=== PATIENT | female | born 1970 | race Caucasian/White ===

== ENCOUNTER → 2016-11-06 | Outpatient (CLI) | payer BC ==
[2014-12-04 04:30] VITALS: BP 107/63
[~2016-11-06] MED LIST: IBUP200T43 PO; OXYC-323 PO
--- NOTE | 2016-11-07 10:07 | KCIC ---
MR of the left thumb History: Left thumb pain since May. Injury at that time. COMPARISON: None FINDINGS: No bone lesion or acute fracture. No acute bone marrow edema. Small benign-appearing cysts incidentally noted at the partially visualized third metacarpal head. No significant joint effusion. The radial and ulnar collateral ligament at the first MTP joint are intact. Flexor and extensor tendons appear intact. No significant tendon sheath fluid. No abnormal soft tissue edema or fluid collection. IMPRESSION: No significant abnormality identified at the left thumb. Electronically signed by: Jalil Hicks MD (11/07/2016 10:04 AM)
== END | disposition home or self-care (01) ==
LOC: KCIC MRI 16:46
PROVIDERS: ATTEND Nurse Practitioner Adult Health
DX: M79.645 Pain in left finger(s) (principal)
CPT/HCPCS: 73218

== ENCOUNTER → 2016-11-09 | Outpatient (CLI) | payer BC ==
[2014-12-04 04:30] VITALS: BP 107/63
--- NOTE | 2016-11-10 10:03 | KCIC ---
MR of the left wrist HISTORY: Left wrist pain and swelling at the radial aspect. History of carpal tunnel surgery. Patient fell in May with hyperextension injury. TECHNIQUE: Routine multiplanar sequences are obtained. FINDINGS: Triangular fibrocartilage is intact. Extensor carpi ulnaris tendon intact. Mild thickening and signal within the abductor pollicis longus and extensor pollicis brevis tendons, at the level of the distal radius and carpi, with mild surrounding fluid. Minimal fluid surrounding the extensor digitorum tendons. Flexor tendons intact. Median nerve unremarkable. No evidence of scapholunate or lunotriquetral ligament tear. Alignment of the carpal bones appears satisfactory. No significant joint effusion. No bone lesion or acute fracture. No significant joint effusion. IMPRESSION: Mild first extensor compartment (De Quervain's) tenosynovitis. Electronically signed by: Jalil Hicks MD (11/10/2016 9:58 AM)
== END | disposition home or self-care (01) ==
LOC: KCIC MRI 16:41
PROVIDERS: ATTEND Nurse Practitioner Adult Health
DX: M25.532 Pain in left wrist (principal); M65.4 Radial styloid tenosynovitis [de Quervain]
CPT/HCPCS: 73221

== ENCOUNTER 2019-02-25 15:02 | Inpatient (IN) | payer BC ==
[~2019-02-25] VITALS: Ht 170.2 cm; Wt 107.2 kg
[~2019-02-25 15:02] MED LIST changes: -IBUP200T43 PO; +IBUP200T44 PO; -OXYC-323 PO; +OXYC1TAB15 PO
--- NOTE | 2019-02-25 15:43 | PHYS DOC ---
Past Medical History Past Medical History: Diverticulosis Past Surgical History: Hysterectomy, Other Additional Past Surgical Histo: foot surgery Alcohol Use: None Drug Use: None Adult General Chief Complaint Chief Complaint: ABDOMINAL PAIN HPI HPI Patient is a 48 year old female with history of diverticulitis presents the ED today stating she was diagnosed with diverticulitis as an outpatient and needs to be admitted. Patient states she's had 8 out of 10 sharp and constant lower abdominal pain for 4 days. She is also complaining of nausea with no vomiting. She states her pain is worse when she is walking. Denies anything specifically relieving her pain. Review of Systems Review of Systems Constitutional: Denies fever or chills [] Eyes: Denies change in visual acuity, redness, or eye pain [] HENT: Denies nasal congestion or sore throat [] Respiratory: Denies cough or shortness of breath [] Cardiovascular: No additional information not addressed in HPI [] GI: Reports lower abdominal pain with nausea, denies vomiting, bloody stools or diarrhea [] : Denies dysuria or hematuria [] Musculoskeletal: Denies back pain or joint pain [] Integument: Denies rash or skin lesions [] Neurologic: Denies headache, focal weakness or sensory changes [] All other systems were reviewed and found to be within normal limits, except as documented in this note. Current Medications Current Medications Current Medications Medications (Trade) Dose Ordered Sig/[facility] Start Time Stop Time Status Last Admin Dose Admin Acetaminophen (Tylenol Supp) 650 mg PRN Q4HRS PRN 02/25/19 16:45 Acetaminophen (Tylenol) 1,000 mg 1X ONCE 02/25/19 17:00 02/25/19 17:01 DC Albuterol Sulfate (Ventolin Neb Soln) 2.5 mg PRN Q4HRS PRN 02/25/19 16:45 Dobutamine HCl/ Dextrose 250 ml @ 0 mls/hr CONT PRN 02/25/19 16:45 UNV Enoxaparin Sodium (Lovenox 40mg Syringe) 40 mg QHS 02/25/19 21:00 Hydromorphone HCl (Dilaudid) 1 mg PRN Q2HRS PRN 02/25/19 16:45 Metronidazole 100 ml @ 100 mls/hr Q8HRS 02/25/19 16:00 02/25/19 16:39 100 MLS/HR Morphine Sulfate (Morphine Sulfate) 4 mg PRN Q15MIN PRN 02/25/19 15:45 02/26/19 15:44 Norepinephrine Bitartrate 250 ml @ 0 mls/hr CONT PRN 02/25/19 16:45 UNV Ondansetron HCl (Zofran) 4 mg PRN Q8HRS PRN 02/25/19 17:00 02/26/19 16:59 UNV Piperacillin Sod/ Tazobactam Sod 3.375 gm/Sodium Chloride 50 ml @ 100 mls/hr 1X ONCE 02/25/19 17:00 02/25/19 17:29 Cancel Piperacillin Sod/ Tazobactam Sod 4.5 gm/Sodium Chloride 100 ml @ 200 mls/hr 1X ONCE 02/25/19 15:45 02/25/19 16:14 DC 02/25/19 16:00 200 MLS/HR Sodium Chloride 1,000 ml @ 125 mls/hr 1X ONCE 02/25/19 17:00 02/26/19 00:59 UNV Sodium Chloride (Normal Saline Flush) 3 ml QSHIFT PRN 02/25/19 16:45 Vancomycin HCl (Vanco Per Pharmacy) 1 each PRN DAILY PRN 02/25/19 16:45 UNV Vancomycin HCl 2 gm/Sodium Chloride 500 ml @ 250 mls/hr 1X ONCE 02/25/19 16:00 02/25/19 17:59 Allergies Allergies Allergies Coded Allergies Type Severity Reaction Last Updated Verified No Known Drug Allergies 11/24/14 No Physical Exam Physical Exam Constitutional: Well developed, well nourished, no acute distress, non-toxic appearance. [] HENT: Normocephalic, atraumatic, bilateral external ears normal, oropharynx moist, no oral exudates, nose normal. [] Eyes: PERRLA, EOMI, conjunctiva normal, no discharge. [] Neck: Normal range of motion, no tenderness, supple, no stridor. [] Cardiovascular:Heart rate regular rhythm, no murmur [] Lungs & Thorax: Bilateral breath sounds clear to auscultation [] Abdomen: Bowel sounds normal, soft, diffuse tenderness throughout the lower aspect of the abdomen, no masses, no pulsatile masses. [] Skin: Warm, dry, no erythema, no rash. [] Back: No tenderness, no CVA tenderness. [] Extremities: No tenderness, no cyanosis, no clubbing, ROM intact, no edema. [] Neurologic: Alert and oriented X 3, normal motor function, normal sensory function, no focal deficits noted. [] Psychologic: Affect normal, judgement normal, mood normal. [] Current Patient Data Vital Signs Vital Signs Date Time Temp Pulse Resp B/P (MAP) Pulse Ox O2 Delivery O2 Flow Rate FiO2 02/25/19 16:41 101 20 130/78 (95) 96 Room Air 02/25/19 15:26 101.1 101.1 Lab Values Laboratory Tests Test 02/25/19 15:30 02/25/19 15:54 White Blood Count 15.4 x10^3/uL (4.0-11.0) H Red Blood Count 4.82 x10^6/uL (3.50-5.40) Hemoglobin 13.9 g/dL (12.0-15.5) Hematocrit 41.2 % (36.0-47.0) Mean Corpuscular Volume 86 fL (79-100) Mean Corpuscular Hemoglobin 29 pg (25-35) Mean Corpuscular Hemoglobin Concent 34 g/dL (31-37) Red Cell Distribution Width 13.5 % (11.5-14.5) Platelet Count 358 x10^3/uL (140-400) Neutrophils (%) (Auto) 83 % (31-73) H Lymphocytes (%) (Auto) 8 % (24-48) L Monocytes (%) (Auto) 8 % (0-9) Eosinophils (%) (Auto) 0 % (0-3) Basophils (%) (Auto) 1 % (0-3) Neutrophils # (Auto) 12.7 x10^3/uL (1.8-7.7) H Lymphocytes # (Auto) 1.3 x10^3/uL (1.0-4.8) Monocytes # (Auto) 1.3 x10^3/uL (0.0-1.1) H Eosinophils # (Auto) 0.1 x10^3/uL (0.0-0.7) Basophils # (Auto) 0.1 x10^3/uL (0.0-0.2) Segmented Neutrophils % 87 % (35-66) H Band Neutrophils % % (0-9) Lymphocytes % 8 % (24-48) L Monocytes % 4 % (0-10) Eosinophils % 1 % (0-5) Platelet Estimate Adequate (ADEQUATE) Giant Platelets Occ Prothrombin Time 15.9 SEC (11.7-14.0) H Prothrombin Time INR 1.3 (0.8-1.1) H Activated Partial Thromboplast Time 33 SEC (24-38) Sodium Level 142 mmol/L (136-145) Potassium Level 3.7 mmol/L (3.5-5.1) Chloride Level 102 mmol/L (98-107) Carbon Dioxide Level 26 mmol/L (21-32) Anion Gap 14 (6-14) Blood Urea Nitrogen 10 mg/dL (7-20) Creatinine 1.0 mg/dL (0.6-1.0) Estimated GFR (Cockcroft-Gault) 58.9 BUN/Creatinine Ratio 10 (6-20) Glucose Level 87 mg/dL (70-99) Lactic Acid Level 1.3 mmol/L (0.4-2.0) Calcium Level 9.7 mg/dL (8.5-10.1) Total Bilirubin 3.6 mg/dL (0.2-1.0) H Aspartate Amino Transferase (AST) 16 U/L (15-37) Alanine Aminotransferase (ALT) 20 U/L (14-59) Alkaline Phosphatase 83 U/L (46-116) Total Protein 7.8 g/dL (6.4-8.2) Albumin 3.6 g/dL (3.4-5.0) Albumin/Globulin Ratio 0.9 (1.0-1.7) L Lipase 64 U/L (73-393) L Urine Collection Type Void Urine Color Alycia Urine Clarity Clear Urine pH 6.0 Urine Specific [place] >=1.030 Urine Protein 30 mg/dL (NEG-TRACE) Urine Glucose (UA) Negative mg/dL (NEG) Urine Ketones (Stick) 40 mg/dL (NEG) Urine Blood Moderate (NEG) Urine Nitrite Negative (NEG) Urine Bilirubin Small (NEG) Urine Urobilinogen Dipstick 1.0 mg/dL (0.2 mg/dL) Urine Leukocyte Esterase Negative (NEG) Urine RBC 3-5 /HPF (0-2) Urine WBC 0 /HPF (0-4) Urine Squamous Epithelial Cells Occ /LPF Urine Bacteria 0 /HPF (0-FEW) Laboratory Tests 02/25/19 15:30 Laboratory Tests 02/25/19 15:30 EKG EKG [] Radiology/Procedures Radiology/Procedures [] Course & Med Decision Making Course & Med Decision Making Pertinent Labs and Imaging studies reviewed. (See chart for details) This is a 48-year-old male patient who presents to the ED today to be admitted for diverticulitis diagnosed through an outpatient workup. Her CAT scan done as an outpatient shows sigmoid diverticulitis complicated by a contained perforation along the posterior wall of the sigmoid colon, no drainable fluid collection present at this time. The extent of inflammation extends over the length of approximately 7-8 cm. No acute abnormality seen elsewhere. Vitals on arrival to the ED temperature 11.1, heart rate 117, respiration 24 and room air, O2 sats 97% on room air, blood pressure 135/82. CBC with a WBC of 15.4 and a left shift, hemoglobin and hematocrit are normal, CMP would not acute findings, peptic is normal, Patient was started on the sepsis protocol including IV fluids and antibiotics, Flagyl was also added to the antibiotics. [address] Yu who will f/u with patient Dragon Disclaimer Dragon Disclaimer This electronic medical record was generated, in whole or in part, using a voice recognition dictation system. Date and Time of Reassessment Date: Dec 03, 2014 Time: 16:18 Fluid Challenge Is the fluid challenge complet: No IBW Target Volume Used: Yes BMI > 30: Yes Vital Signs Vital Signs: Vital Signs Date Time Temp Pulse Resp B/P (MAP) Pulse Ox O2 Delivery O2 Flow Rate FiO2 02/25/19 16:41 101 20 130/78 (95) 96 Room Air 02/25/19 15:26 101.1 101.1 Temperature Source: Oral Respirations Respiratory Effort: Normal Respiratory Pattern: Normal Cardiovascular Pulse Rhythm: Regular Heart: Nml rate, reg. rhythm Lung Sounds Breath Sounds: Clear Capillary Refil Capillary Refill: Rt Hand > 3 seconds Peripheral Pulse Pulse Location: Monitor Pulse Strength: Normal (2+) Pulse Assessment Method: Monitor Integumentary Skin: Warm Skin Moisture: Dry Skin Color: warm Fingernail Color: WNL Departure Departure Impression: Primary Impression: Diverticulitis of colon with perforation Additional Impressions: Sepsis Fever Disposition: 09 ADMITTED INPATIENT Condition: STABLE Referrals: GOR[facility] (PCP) Problem Qualifiers Primary Impression: Diverticulitis of colon with perforation Diverticulitis bleeding: unspecified bleeding status Qualified Codes: K57.20 - Diverticulitis of large intestine with perforation and abscess without bleeding Additional Impressions: Sepsis Sepsis type: sepsis due to unspecified organism Sepsis acute organ dysfun ction status: unspecified Qualified Codes: A41.9 - Sepsis, unspecified organism Fever Fever type: unspecified Qualified Codes: R50.9 - Fever, unspecified MUTUNGA,RON STRATEGY ANALYST Feb 25, 2019 15:43
[2019-02-25] MEDS ORDERED: MORPHINE SULFATE 4 MG/ML VIAL. IV/SQ PRN (15:45)
[2019-02-25] MEDS ORDERED: PIPERACILLIN/TAZOBACTAM 4.5 GM in IV NORMAL SALINE 100ML 100 ML IV ONE (15:45)
[2019-02-25] MEDS ORDERED: ONDANSETRON PF 4 MG/2 ML VIAL. IVP ONE (15:45)
[2019-02-25] MEDS ORDERED: VANCOMYCIN PER PHARMACY MC ONE (15:45)
[2019-02-25 15:47] LABS: BASO # 0.1 x10^3/uL (0.0-0.2); BASO % 1 % (0-3); EOS # 0.1 x10^3/uL (0.0-0.7); EOS % 0 % (0-3); HEMATOCRIT 41.2 % (36.0-47.0); HEMOGLOBIN 13.9 g/dL (12.0-15.5); LYMPH # 1.3 x10^3/uL (1.0-4.8); LYMPH % 8 % (24-48); MEAN CORPUSCULAR HEMOGLOBIN 29 pg (25-35); MEAN CORPUSCULAR HGB CONC 34 g/dL (31-37); MEAN CORPUSCULAR VOLUME 86 fL (79-100); MONO # 1.3 x10^3/uL (0.0-1.1); MONO % 8 % (0-9); NEUT # 12.7 x10^3/uL (1.8-7.7); NEUT % 83 % (31-73); PLATELET COUNT 358 x10^3/uL (140-400); RED BLOOD COUNT 4.82 x10^6/uL (3.50-5.40); RED CELL DISTRIBUTION WIDTH 13.5 % (11.5-14.5); WHITE BLOOD COUNT 15.4 x10^3/uL (4.0-11.0)
[2019-02-25] MEDS: IV NORMAL SALINE 1000ML BAG 1,000 ML IV SCH ×5 (15:50→17:18)
[2019-02-25 15:56] LABS: CALCIUM 9.7 mg/dL (8.5-10.1); GFR 58.9; POTASSIUM 3.7 mmol/L (3.5-5.1)
[2019-02-25 15:57] LABS: BILIRUBIN,URINE SMALL (NEG); CLARITY,URINE CLEAR; COLOR,URINE AMBER; NITRITE,URINE NEGATIVE (NEG); PROTEIN,URINE 30 mg/dL (NEG-TRACE)
[2019-02-25] MEDS ORDERED: VANCOMYCIN 2 GM in IV NORMAL SALINE 500ML BAG 500 ML IV ONE (16:00)
[2019-02-25 16:01] LABS: ALBUMIN 3.6 g/dL (3.4-5.0); ALBUMIN/GLOBULIN RATIO 0.9 (1.0-1.7); TOTAL BILIRUBIN 3.6 mg/dL (0.2-1.0); TOTAL PROTEIN 7.8 g/dL (6.4-8.2)
[2019-02-25 16:04] LABS: PROTHROMBIN TIME PATIENT 15.9 SEC (11.7-14.0)
[2019-02-25 16:09] LABS: BACTERIA,URINE 0 /HPF (0-FEW); SQUAMOUS EPITHELIAL CELL,UR OCC /LPF; WBC,URINE 0 /HPF (0-4)
--- NOTE | 2019-02-25 16:23 | PDOC1 ---
History and Physical Date of Admission Date of Admission DATE: 02/25/19 TIME: 16:21 Identification/Chief Complaint Chief Complaint SENT TO ER BY PCP WITH PERF OF COLON BY CT REPORT D/W DR ROBERTS BY PHONE, SURGERY CONSULTED 48 year old female with history of diverticulitis presents the ED today stating she was diagnosed with diverticulitis as an outpatient and needs to be admitted. Patient states she's had 8 out of 10 sharp and constant lower abdominal pain for 4 days. She is also complaining of nausea with no vomiting. She states her pain is worse when she is walking. Past Medical History Past Medical History Past Medical History Past Medical History Past Medical History: Diverticulosis Past Surgical History: Hysterectomy, Other Additional Past Surgical Histo: foot surgery Alcohol Use: None Drug Use: None PAST MEDICAL HISTORY: She is a 4, para 4. PAST SURGICAL HISTORY: She has had no past surgeries. MEDICATION: Her only medication is an allergy medication, ALLERGIES: She has no known drug allergies. SOCIAL HISTORY: She is a nonsmoker. No drugs. No alcohol. FAMILY HISTORY: breast cancer in her maternal aunt. fhx obesity Cardiovascular: No pertinent hx Pulmonary: No pertinent hx GI: No pertinent hx Heme/Onc: No pertinent hx Psych: No pertinent hx Rheumatologic: No pertinent hx Infectious disease: No pertinent hx ENT: No pertinent hx Renal/: No pertinent hx Endocrine: No pertinent hx Family History Family History: Hypertension Social History Smoke: No ALCOHOL: none Drugs: None Current Problem List Problem List Problems Medical Problems: (1) Diverticulitis of colon with perforation Status: Acute (2) Fever Status: Acute (3) Sepsis Status: Acute Current Medications Current Medications Current Medications Sodium Chloride 1,000 ml @ 1,860 mls/hr Q33M IV Last administered on 02/25/19at 15:50; Start 02/25/19 at 15:32; Stop 02/25/19 at 16:32 Piperacillin Sod/ Tazobactam Sod 4.5 gm/Sodium Chloride 100 ml @ 200 mls/hr 1X ONCE IV Last administered on 02/25/19at 16:00; Start 02/25/19 at 15:45; Stop 02/25/19 at 16:14; Status DC Vancomycin HCl (Vanco Per Pharmacy) 1 each 1X ONCE [facility] ; Start 02/25/19 at 15:45; Stop 02/25/19 at 15:46; Status UNV Morphine Sulfate (Morphine Sulfate) 4 mg PRN Q15MIN PRN IV/SQ PAIN GREATER THAN 3/10; Start 02/25/19 at 15:45; Stop 02/26/19 at 15:44 Vancomycin HCl 2 gm/Sodium Chloride 500 ml @ 250 mls/hr 1X ONCE IV ; Start 02/25/19 at 16:00; Stop 02/25/19 at 17:59 Metronidazole 100 ml @ 100 mls/hr Q8HRS IV ; Start 02/25/19 at 16:00 Ondansetron HCl (Zofran) 4 mg 1X ONCE IVP ; Start 02/25/19 at 15:45; Stop 02/25/19 at 15:46; Status DC Active Scripts Active Reported Percocet 5-325 Mg Tablet (Oxycodone/Acetaminophen) 1 Each Tablet 1-2 Tab PO Q4- 6HRS Motrin Ib (Ibuprofen) 200 Mg Tablet 200 Mg PO Q6H Allergies Allergies: Coded Allergies: No Known Drug Allergies (Unverified , 11/24/14) ROS Review of System Review of Systems Review of Systems Constitutional: pos fever // chills [] Eyes: Denies change in visual acuity, redness, or eye pain [] HENT: Denies nasal congestion or sore throat [] Respiratory: Denies cough or shortness of breath [] Cardiovascular: No additional information not addressed in HPI [] GI: Reports lower abdominal pain with nausea, denies vomiting, bloody stools or diarrhea [] : Denies dysuria or hematuria [] Musculoskeletal: Denies back pain or joint pain [] Integument: Denies rash or skin lesions [] Neurologic: Denies headache, focal weakness or sensory changes [] 14 pt systems were reviewed and found to be within normal limits, except as documented General: YES: Chills Respiratory: No: Cough, Hemoptysis, Orthopnea, Pleuritic Pain, Shortness of breath, SOB with excertion, Sputum Changes, Stridor, Tachypnea, Wheezing, Other Cardiovascular: No Chest Pain, No Palpitations, No Orthopnea, No Paroxysmal Noc. Dyspnea, No Edema, No Lt Headedness, No Other Gastrointestinal: Yes Abdominal Pain Physical Exam Physical Exam Physical Exam Physical Exam Constitutional: Well developed, well nourished, mild acute distress, non-toxic appearance. [] HENT: Normocephalic, atraumatic, bilateral external ears normal, oropharynx moist, no oral exudates, nose normal. [] Eyes: PERRLA, EOMI, conjunctiva normal, no discharge. [] Neck: Normal range of motion, no tenderness, supple, no stridor. [] Cardiovascular:Heart rate regular rhythm, no murmur [] Lungs & Thorax: Bilateral breath sounds clear to auscultation [] Abdomen: diffuse tenderness throughout the lower aspect of the abdomen, no masses, no pulsatile masses. [] Skin: Warm, dry, no erythema, no rash. [] Back: No tenderness, no CVA tenderness. [] Extremities: No tenderness, no cyanosis, no clubbing, ROM intact, no edema. [] Neurologic: Alert and oriented X 3, normal motor function, normal sensory function, no focal deficits noted. [] Psychologic: Affect normal, judgment normal, mood normal. [] General: Alert, Oriented X3, Cooperative, mild distress HEENT: Atraumatic, PERRLA, EOMI, Mucous membr. moist/pink Lungs: Clear to auscultation Heart: S1S2, RRR, no thrills, no gallops Breasts: Not examined Abdomen: No hepatosplenomegaly Rectal Exam: not examined PELVIC: Examination not indicated Extremities: No cyanosis, No edema Skin: No breakdown Neuro: Normal speech, Cranial nerves 3-12 NL Psych/Mental Status: Mental status NL, Mood NL Vitals Vitals Vital Signs Date Time Temp Pulse Resp B/P (MAP) Pulse Ox O2 Delivery O2 Flow Rate FiO2 02/25/19 16:03 105 18 120/73 (89) 98 Room Air 02/25/19 15:26 101.1 101.1 Labs Labs Laboratory Tests Test 02/25/19 15:30 02/25/19 15:54 White Blood Count 15.4 x10^3/uL (4.0-11.0) Red Blood Count 4.82 x10^6/uL (3.50-5.40) Hemoglobin 13.9 g/dL (12.0-15.5) Hematocrit 41.2 % (36.0-47.0) Mean Corpuscular Volume 86 fL (79-100) Mean Corpuscular Hemoglobin 29 pg (25-35) Mean Corpuscular Hemoglobin Concent 34 g/dL (31-37) Red Cell Distribution Width 13.5 % (11.5-14.5) Platelet Count 358 x10^3/uL (140-400) Neutrophils (%) (Auto) 83 % (31-73) Lymphocytes (%) (Auto) 8 % (24-48) Monocytes (%) (Auto) 8 % (0-9) Eosinophils (%) (Auto) 0 % (0-3) Basophils (%) (Auto) 1 % (0-3) Neutrophils # (Auto) 12.7 x10^3/uL (1.8-7.7) Lymphocytes # (Auto) 1.3 x10^3/uL (1.0-4.8) Monocytes # (Auto) 1.3 x10^3/uL (0.0-1.1) Eosinophils # (Auto) 0.1 x10^3/uL (0.0-0.7) Basophils # (Auto) 0.1 x10^3/uL (0.0-0.2) Prothrombin Time 15.9 SEC (11.7-14.0) Prothromb Time International Ratio 1.3 (0.8-1.1) Activated Partial Thromboplast Time 33 SEC (24-38) Sodium Level 142 mmol/L (136-145) Potassium Level 3.7 mmol/L (3.5-5.1) Chloride Level 102 mmol/L (98-107) Carbon Dioxide Level 26 mmol/L (21-32) Anion Gap 14 (6-14) Blood Urea Nitrogen 10 mg/dL (7-20) Creatinine 1.0 mg/dL (0.6-1.0) Estimated GFR (Cockcroft-Gault) 58.9 BUN/Creatinine Ratio 10 (6-20) Glucose Level 87 mg/dL (70-99) Lactic Acid Level 1.3 mmol/L (0.4-2.0) Calcium Level 9.7 mg/dL (8.5-10.1) Total Bilirubin 3.6 mg/dL (0.2-1.0) Aspartate Amino Transf (AST/SGOT) 16 U/L (15-37) Alanine Aminotransferase (ALT/SGPT) 20 U/L (14-59) Alkaline Phosphatase 83 U/L (46-116) Total Protein 7.8 g/dL (6.4-8.2) Albumin 3.6 g/dL (3.4-5.0) Albumin/Globulin Ratio 0.9 (1.0-1.7) Lipase 64 U/L (73-393) Urine Collection Type Void Urine Color Alycia Urine Clarity Clear Urine pH 6.0 Urine Specific [place] >=1.030 Urine Protein 30 mg/dL (NEG-TRACE) Urine Glucose (UA) Negative mg/dL (NEG) Urine Ketones (Stick) 40 mg/dL (NEG) Urine Blood Moderate (NEG) Urine Nitrite Negative (NEG) Urine Bilirubin Small (NEG) Urine Urobilinogen Dipstick 1.0 mg/dL (0.2 mg/dL) Urine Leukocyte Esterase Negative (NEG) Urine RBC 3-5 /HPF (0-2) Urine WBC 0 /HPF (0-4) Urine Squamous Epithelial Cells Occ /LPF Urine Bacteria 0 /HPF (0-FEW) Laboratory Tests Test 02/25/19 15:30 02/25/19 15:54 White Blood Count 15.4 x10^3/uL (4.0-11.0) Red Blood Count 4.82 x10^6/uL (3.50-5.40) Hemoglobin 13.9 g/dL (12.0-15.5) Hematocrit 41.2 % (36.0-47.0) Mean Corpuscular Volume 86 fL (79-100) Mean Corpuscular Hemoglobin 29 pg (25-35) Mean Corpuscular Hemoglobin Concent 34 g/dL (31-37) Red Cell Distribution Width 13.5 % (11.5-14.5) Platelet Count 358 x10^3/uL (140-400) Neutrophils (%) (Auto) 83 % (31-73) Lymphocytes (%) (Auto) 8 % (24-48) Monocytes (%) (Auto) 8 % (0-9) Eosinophils (%) (Auto) 0 % (0-3) Basophils (%) (Auto) 1 % (0-3) Neutrophils # (Auto) 12.7 x10^3/uL (1.8-7.7) Lymphocytes # (Auto) 1.3 x10^3/uL (1.0-4.8) Monocytes # (Auto) 1.3 x10^3/uL (0.0-1.1) Eosinophils # (Auto) 0.1 x10^3/uL (0.0-0.7) Basophils # (Auto) 0.1 x10^3/uL (0.0-0.2) Prothrombin Time 15.9 SEC (11.7-14.0) Prothromb Time International Ratio 1.3 (0.8-1.1) Activated Partial Thromboplast Time 33 SEC (24-38) Sodium Level 142 mmol/L (136-145) Potassium Level 3.7 mmol/L (3.5-5.1) Chloride Level 102 mmol/L (98-107) Carbon Dioxide Level 26 mmol/L (21-32) Anion Gap 14 (6-14) Blood Urea Nitrogen 10 mg/dL (7-20) Creatinine 1.0 mg/dL (0.6-1.0) Estimated GFR (Cockcroft-Gault) 58.9 BUN/Creatinine Ratio 10 (6-20) Glucose Level 87 mg/dL (70-99) Lactic Acid Level 1.3 mmol/L (0.4-2.0) Calcium Level 9.7 mg/dL (8.5-10.1) Total Bilirubin 3.6 mg/dL (0.2-1.0) Aspartate Amino Transf (AST/SGOT) 16 U/L (15-37) Alanine Aminotransferase (ALT/SGPT) 20 U/L (14-59) Alkaline Phosphatase 83 U/L (46-116) Total Protein 7.8 g/dL (6.4-8.2) Albumin 3.6 g/dL (3.4-5.0) Albumin/Globulin Ratio 0.9 (1.0-1.7) Lipase 64 U/L (73-393) Urine Collection Type Void Urine Color Alycia Urine Clarity Clear Urine pH 6.0 Urine Specific [place] >=1.030 Urine Protein 30 mg/dL (NEG-TRACE) Urine Glucose (UA) Negative mg/dL (NEG) Urine Ketones (Stick) 40 mg/dL (NEG) Urine Blood Moderate (NEG) Urine Nitrite Negative (NEG) Urine Bilirubin Small (NEG) Urine Urobilinogen Dipstick 1.0 mg/dL (0.2 mg/dL) Urine Leukocyte Esterase Negative (NEG) Urine RBC 3-5 /HPF (0-2) Urine WBC 0 /HPF (0-4) Urine Squamous Epithelial Cells Occ /LPF Urine Bacteria 0 /HPF (0-FEW) VTE Prophylaxis Ordered VTE Prophylaxis Devices: Yes VTE Pharmacological Prophylaxi: Contraindicated Assessment/Plan Assessment/Plan impression 1. ACUTE DIVERTICULITIS WITH REPORTED PERFORATION BY HX, VERBAL ///CT REPORT 2. SEPSIS 3. MORBID OBESITY 4. LEUKOCYTOSIS 5. FEVER PLAN NPO IV FLUID SUPPORT GEN SURGERY CONSULT MIMI EMPERIC IV ANTIBIOTICS IV VANC, CIPRO, ZOSYN ID CONSULT BLOOD CULT DVT PROPHYLAXIS GI PROPHYLAXIS AM LABS SEPSIS PROTOCOL 34 MIN CC TIME LEVI DUVAL MD Feb 25, 2019 16:23
[2019-02-25 16:31] LABS: % EOS 1 % (0-5); % LYMPHS 8 % (24-48); % MONOS 4 % (0-10); % SEGS 87 % (35-66); PLT ESTIMATE ADEQUATE (ADEQUATE)
[2019-02-25] MEDS ORDERED: NOREPINEPHRIN 8MG/250ML PREMIX 250 ML IV PRN (16:45)
[2019-02-25] MEDS ORDERED: ACETAMINOPHEN 650 MG SUPP.RECT. PR PRN (16:45)
[2019-02-25] MEDS ORDERED: ONDANSETRON PF 4 MG/2 ML VIAL. IV PRN ×2 (16:45→17:00)
[2019-02-25] MEDS ORDERED: ALBUTEROL SULFATE 2.5 MG/3 ML NEBU. NEB PRN (16:45)
[2019-02-25] MEDS ORDERED: IV NORMAL SALINE 500ML BAG 500 ML IV PRN (16:45)
[2019-02-25] MEDS ORDERED: HYDROmorphone 2 MG/ML VIAL IV PRN (16:45)
[2019-02-25] MEDS ORDERED: 0.9 % SODIUM CHLORIDE 10 ML DISP.SYRIN. IV PRN (16:45)
[2019-02-25] MEDS ORDERED: ACETAMINOPHEN 500 MG TABLET PO ONE (17:00)
[2019-02-25] MEDS ORDERED: IV NORMAL SALINE 1000ML BAG 1,000 ML IV ONE (17:00)
[2019-02-25] MEDS ORDERED: PIPERACILLIN/TAZOBACTAM 3.375 GM in IV NORMAL SALINE 50ML 50 ML IV ONE (17:00)
[2019-02-25 17:06] LABS: D-DIMER 1.61 ug/mlFEU (0.00-0.50)
[2019-02-25] MEDS: VANCOMYCIN PER PHARMACY MC PRN (19:16)
--- NOTE | 2019-02-25 19:21 | NUR ---
Pharmacy Vancomycin Dosing Note S:Consulted to monitor and dose vancomycin started 02/25/19. O:NED CANTOR is a 48 year old F with perforated colon . Height: 5 feet, 7 inches Weight: 108.867096 kg [place] Body Weight: 61.60 Adjusted Body Weight: 80.16 Dosing Weight: Actual Other Antibiotics: zosyn LABS: Last BUN: 10 Last Creatinine: 1.0 Creatinine Clearance: 86 mL/min Last WBC: 15.4 Last Procalcitonin: Tmax (past 24 hours): Microbiology: I/O: Drug Levels: Last level: on at Last dose given at Vancomycin Dosing: Loading Dose: 2000 mg x1 Dosing Weight: Actual Target Trough: 10-20 A: Based on: HT, WT AND RENAL FXN P: 1. Begin Vancomycin 1250 mg IV q12h 2. Follow up Trough level on 02/27/19 at 0530 3. Pharmacy will continue to monitor, follow and adjust therapy as needed. FARNAZ MARTIN, [facility], 02/25/19 [id number]
[2019-02-25 19:30] VITALS: BP 120/75
[2019-02-25 23:35] VITALS: BP 122/71
[2019-02-25] MEDS: ENOXAPARIN 40 MG/0.4 ML SYRINGE. SQ SCH (23:49)
[2019-02-26] MEDS: PIPERACILLIN/TAZOBACTAM 3.375 GM in IV NORMAL SALINE 50ML 50 ML IV SCH ×5 (00:53→23:15)
[2019-02-26] MEDS: IV NORMAL SALINE 1000ML BAG 1,000 ML IV SCH ×4 (02:40→23:16)
[2019-02-26 03:25] VITALS: BP 138/76
[2019-02-26 04:32] LABS: BASO % 0 % (0-3); EOS # 0.1 x10^3/uL (0.0-0.7); EOS % 1 % (0-3); HEMATOCRIT 36.5 % (36.0-47.0); HEMOGLOBIN 12.2 g/dL (12.0-15.5); LYMPH # 0.8 x10^3/uL (1.0-4.8); LYMPH % 7 % (24-48); MEAN CORPUSCULAR HEMOGLOBIN 29 pg (25-35); MEAN CORPUSCULAR HGB CONC 33 g/dL (31-37); MEAN CORPUSCULAR VOLUME 86 fL (79-100); MONO # 0.8 x10^3/uL (0.0-1.1); MONO % 7 % (0-9); NEUT # 9.5 x10^3/uL (1.8-7.7); NEUT % 85 % (31-73); PLATELET COUNT 271 x10^3/uL (140-400); RED BLOOD COUNT 4.23 x10^6/uL (3.50-5.40); RED CELL DISTRIBUTION WIDTH 13.7 % (11.5-14.5); WHITE BLOOD COUNT 11.1 x10^3/uL (4.0-11.0)
[2019-02-26 04:43] LABS: CALCIUM 8.6 mg/dL (8.5-10.1); CREATININE 0.8 mg/dL (0.6-1.0); GFR 76.2; POTASSIUM 3.7 mmol/L (3.5-5.1)
[2019-02-26] MEDS ORDERED: VANCOMYCIN 1.25 GM in IV NORMAL SALINE 250ML 250 ML IV SCH (06:00)
[2019-02-26 07:00] VITALS: BP 140/82
--- NOTE | 2019-02-26 08:00 | NUR ---
Spoke with pharmacy regarding flu shot and possible surgery. Pharmacy advised to hold off on flu shot administration until official plan in place. Will continue to monitor.
[2019-02-26] MEDS: VANCOMYCIN PER PHARMACY MC PRN (08:34)
[2019-02-26] MEDS ORDERED: FLU VAX QS 2019-20 (36MOS+)/PF 0.5 ML SYRINGE. VAX IM ONE (09:00)
[2019-02-26] MEDS ORDERED: ACETAMINOPHEN 325 MG TABLET. PO PRN (09:15)
--- NOTE | 2019-02-26 09:31 | PDOC ---
Infectious Disease Note Vital Sign Vital Signs Vital Signs Date Time Temp Pulse Resp B/P (MAP) Pulse Ox O2 Delivery O2 Flow Rate FiO2 02/26/19 07:00 98.2 94 16 140/82 (101) 93 Room Air 98.2 Labs Lab Laboratory Tests Test 02/25/19 15:30 02/25/19 15:54 02/26/19 02:55 White Blood Count 15.4 x10^3/uL (4.0-11.0) 11.1 x10^3/uL (4.0-11.0) Red Blood Count 4.82 x10^6/uL (3.50-5.40) 4.23 x10^6/uL (3.50-5.40) Hemoglobin 13.9 g/dL (12.0-15.5) 12.2 g/dL (12.0-15.5) Hematocrit 41.2 % (36.0-47.0) 36.5 % (36.0-47.0) Mean Corpuscular Volume 86 fL (79-100) 86 fL (79-100) Mean Corpuscular Hemoglobin 29 pg (25-35) 29 pg (25-35) Mean Corpuscular Hemoglobin Concent 34 g/dL (31-37) 33 g/dL (31-37) Red Cell Distribution Width 13.5 % (11.5-14.5) 13.7 % (11.5-14.5) Platelet Count 358 x10^3/uL (140-400) 271 x10^3/uL (140-400) Neutrophils (%) (Auto) 83 % (31-73) 85 % (31-73) Lymphocytes (%) (Auto) 8 % (24-48) 7 % (24-48) Monocytes (%) (Auto) 8 % (0-9) 7 % (0-9) Eosinophils (%) (Auto) 0 % (0-3) 1 % (0-3) Basophils (%) (Auto) 1 % (0-3) 0 % (0-3) Neutrophils # (Auto) 12.7 x10^3/uL (1.8-7.7) 9.5 x10^3/uL (1.8-7.7) Lymphocytes # (Auto) 1.3 x10^3/uL (1.0-4.8) 0.8 x10^3/uL (1.0-4.8) Monocytes # (Auto) 1.3 x10^3/uL (0.0-1.1) 0.8 x10^3/uL (0.0-1.1) Eosinophils # (Auto) 0.1 x10^3/uL (0.0-0.7) 0.1 x10^3/uL (0.0-0.7) Basophils # (Auto) 0.1 x10^3/uL (0.0-0.2) 0.0 x10^3/uL (0.0-0.2) Segmented Neutrophils % 87 % (35-66) Band Neutrophils % % (0-9) Lymphocytes % 8 % (24-48) Monocytes % 4 % (0-10) Eosinophils % 1 % (0-5) Platelet Estimate Adequate (ADEQUATE) Giant Platelets Occ Prothrombin Time 15.9 SEC (11.7-14.0) Prothromb Time International Ratio 1.3 (0.8-1.1) Activated Partial Thromboplast Time 33 SEC (24-38) Fibrinogen 750 mg/dL (200-440) D-Dimer (Nancy) 1.61 ug/mlFEU (0.00-0.50) Sodium Level 142 mmol/L (136-145) 142 mmol/L (136-145) Potassium Level 3.7 mmol/L (3.5-5.1) 3.7 mmol/L (3.5-5.1) Chloride Level 102 mmol/L (98-107) 108 mmol/L (98-107) Carbon Dioxide Level 26 mmol/L (21-32) 21 mmol/L (21-32) Anion Gap 14 (6-14) 13 (6-14) Blood Urea Nitrogen 10 mg/dL (7-20) 9 mg/dL (7-20) Creatinine 1.0 mg/dL (0.6-1.0) 0.8 mg/dL (0.6-1.0) Estimated GFR (Cockcroft-Gault) 58.9 76.2 BUN/Creatinine Ratio 10 (6-20) Glucose Level 87 mg/dL (70-99) 72 mg/dL (70-99) Lactic Acid Level 1.3 mmol/L (0.4-2.0) Calcium Level 9.7 mg/dL (8.5-10.1) 8.6 mg/dL (8.5-10.1) Total Bilirubin 3.6 mg/dL (0.2-1.0) Aspartate Amino Transf (AST/SGOT) 16 U/L (15-37) Alanine Aminotransferase (ALT/SGPT) 20 U/L (14-59) Alkaline Phosphatase 83 U/L (46-116) Total Protein 7.8 g/dL (6.4-8.2) Albumin 3.6 g/dL (3.4-5.0) Albumin/Globulin Ratio 0.9 (1.0-1.7) Lipase 64 U/L (73-393) Procalcitonin < 0.10 ng/mL (0.00-0.10) Urine Collection Type Void Urine Color Alycia Urine Clarity Clear Urine pH 6.0 Urine Specific Ki[place] >=1.030 Urine Protein 30 mg/dL (NEG-TRACE) Urine Glucose (UA) Negative mg/dL (NEG) Urine Ketones (Stick) 40 mg/dL (NEG) Urine Blood Moderate (NEG) Urine Nitrite Negative (NEG) Urine Bilirubin Small (NEG) Urine Urobilinogen Dipstick 1.0 mg/dL (0.2 mg/dL) Urine Leukocyte Esterase Negative (NEG) Urine RBC 3-5 /HPF (0-2) Urine WBC 0 /HPF (0-4) Urine Squamous Epithelial Cells Occ /LPF Urine Bacteria 0 /HPF (0-FEW) Objective Assessment Acute diverticulitis with contained perforation (OP CT scan) Fever Leukocytosis Obesity Plan Plan of Care Continue Zosyn D/c vanc and flagyl f/u cultures D/w Dr. Yu, lalit surgical plans Clear liquids Thank you [id number] Need to acquire CT scan images so we can use for comparison. d/w D/w nursing may need to change IV as it is beeping frequently with occlusion Attending Co-Sign Attending Co-Sign The patient was seen and interviewed as well as examined at the bedside. The chart was reviewed. The case was discussed. Agree with the plan of care. PARKER SANCHEZ APRN Feb 26, 2019 09:31 LORENA MCGEE MD Feb 26, 2019 17:17
--- NOTE | 2019-02-26 10:07 | PDOC ---
[facility] PROGRESS NOTE Chief Complaint Chief Complaint Abdominal pain History of Present Illness History of Present Illness 02/26/19 Pt seen and examined Pt had CXR today PT is feeling better and sitting up right eating clear liquid diet We explained to her about her diverticulitis condition and ways to help keep her bowel soft and to avoid seeds Reviewed chart and labs MARIA G REGALADO Vitals/I&O Vitals/I&O: Vital Signs Date Time Temp Pulse Resp B/P (MAP) Pulse Ox O2 Delivery O2 Flow Rate FiO2 02/26/19 07:00 98.2 94 16 140/82 (101) 93 Room Air 98.2 I & O 02/25/19 02/25/19 02/26/19 15:00 23:00 07:00 Intake Total 2060 ml 300 ml Output Total 600 ml Balance 2060 ml -300 ml Physical Exam General: Alert, Oriented X3, Cooperative, mild distress Abdomen: No hepatosplenomegaly Extremities: No cyanosis, No edema Skin: No breakdown Labs Labs: Laboratory Tests Test 02/25/19 15:30 02/25/19 15:54 02/26/19 02:55 White Blood Count 15.4 x10^3/uL (4.0-11.0) 11.1 x10^3/uL (4.0-11.0) Red Blood Count 4.82 x10^6/uL (3.50-5.40) 4.23 x10^6/uL (3.50-5.40) Hemoglobin 13.9 g/dL (12.0-15.5) 12.2 g/dL (12.0-15.5) Hematocrit 41.2 % (36.0-47.0) 36.5 % (36.0-47.0) Mean Corpuscular Volume 86 fL (79-100) 86 fL (79-100) Mean Corpuscular Hemoglobin 29 pg (25-35) 29 pg (25-35) Mean Corpuscular Hemoglobin Concent 34 g/dL (31-37) 33 g/dL (31-37) Red Cell Distribution Width 13.5 % (11.5-14.5) 13.7 % (11.5-14.5) Platelet Count 358 x10^3/uL (140-400) 271 x10^3/uL (140-400) Neutrophils (%) (Auto) 83 % (31-73) 85 % (31-73) Lymphocytes (%) (Auto) 8 % (24-48) 7 % (24-48) Monocytes (%) (Auto) 8 % (0-9) 7 % (0-9) Eosinophils (%) (Auto) 0 % (0-3) 1 % (0-3) Basophils (%) (Auto) 1 % (0-3) 0 % (0-3) Neutrophils # (Auto) 12.7 x10^3/uL (1.8-7.7) 9.5 x10^3/uL (1.8-7.7) Lymphocytes # (Auto) 1.3 x10^3/uL (1.0-4.8) 0.8 x10^3/uL (1.0-4.8) Monocytes # (Auto) 1.3 x10^3/uL (0.0-1.1) 0.8 x10^3/uL (0.0-1.1) Eosinophils # (Auto) 0.1 x10^3/uL (0.0-0.7) 0.1 x10^3/uL (0.0-0.7) Basophils # (Auto) 0.1 x10^3/uL (0.0-0.2) 0.0 x10^3/uL (0.0-0.2) Segmented Neutrophils % 87 % (35-66) Band Neutrophils % % (0-9) Lymphocytes % 8 % (24-48) Monocytes % 4 % (0-10) Eosinophils % 1 % (0-5) Platelet Estimate Adequate (ADEQUATE) Giant Platelets Occ Prothrombin Time 15.9 SEC (11.7-14.0) Prothromb Time International Ratio 1.3 (0.8-1.1) Activated Partial Thromboplast Time 33 SEC (24-38) Fibrinogen 750 mg/dL (200-440) D-Dimer (Nancy) 1.61 ug/mlFEU (0.00-0.50) Sodium Level 142 mmol/L (136-145) 142 mmol/L (136-145) Potassium Level 3.7 mmol/L (3.5-5.1) 3.7 mmol/L (3.5-5.1) Chloride Level 102 mmol/L (98-107) 108 mmol/L (98-107) Carbon Dioxide Level 26 mmol/L (21-32) 21 mmol/L (21-32) Anion Gap 14 (6-14) 13 (6-14) Blood Urea Nitrogen 10 mg/dL (7-20) 9 mg/dL (7-20) Creatinine 1.0 mg/dL (0.6-1.0) 0.8 mg/dL (0.6-1.0) Estimated GFR (Cockcroft-Gault) 58.9 76.2 BUN/Creatinine Ratio 10 (6-20) Glucose Level 87 mg/dL (70-99) 72 mg/dL (70-99) Lactic Acid Level 1.3 mmol/L (0.4-2.0) Calcium Level 9.7 mg/dL (8.5-10.1) 8.6 mg/dL (8.5-10.1) Total Bilirubin 3.6 mg/dL (0.2-1.0) Aspartate Amino Transf (AST/SGOT) 16 U/L (15-37) Alanine Aminotransferase (ALT/SGPT) 20 U/L (14-59) Alkaline Phosphatase 83 U/L (46-116) Total Protein 7.8 g/dL (6.4-8.2) Albumin 3.6 g/dL (3.4-5.0) Albumin/Globulin Ratio 0.9 (1.0-1.7) Lipase 64 U/L (73-393) Procalcitonin < 0.10 ng/mL (0.00-0.10) Urine Collection Type Void Urine Color Alycia Urine Clarity Clear Urine pH 6.0 Urine Specific [place] >=1.030 Urine Protein 30 mg/dL (NEG-TRACE) Urine Glucose (UA) Negative mg/dL (NEG) Urine Ketones (Stick) 40 mg/dL (NEG) Urine Blood Moderate (NEG) Urine Nitrite Negative (NEG) Urine Bilirubin Small (NEG) Urine Urobilinogen Dipstick 1.0 mg/dL (0.2 mg/dL) Urine Leukocyte Esterase Negative (NEG) Urine RBC 3-5 /HPF (0-2) Urine WBC 0 /HPF (0-4) Urine Squamous Epithelial Cells Occ /LPF Urine Bacteria 0 /HPF (0-FEW) Review of Systems Review of Systems: Denies pain Denies n/v/d Assessment and Plan Assessmemt and Plan Problems Medical Problems: (1) Diverticulitis of colon with perforation Status: Acute (2) Fever Status: Acute (3) Sepsis Status: Acute Assessment Acute diverticulitis of sigmoid colon with perforation Sepsis Obesity Leukocytosis Fever PLAN D/c flagyl and vanc Zosyn per ID Clear liquids Tylenol PRN Appreciate ID consult Labs Sepsis protocol Appreciate surgery consult Comment Review of Relevant I have reviewed the following items georges (where applicable) has been applied. Medications: Current Medications Medications (Trade) Dose Ordered Sig/Mercy Route PRN Reason Start Time Stop Time Status Last Admin Dose Admin Sodium Chloride 1,000 ml @ 1,860 mls/hr Q33M IV 02/25/19 15:32 02/25/19 16:32 DC 02/25/19 17:17 Piperacillin Sod/ Tazobactam Sod 4.5 gm/Sodium Chloride 100 ml @ 200 mls/hr 1X ONCE IV 02/25/19 15:45 02/25/19 16:14 DC 02/25/19 16:00 Vancomycin HCl 2 gm/Sodium Chloride 500 ml @ 250 mls/hr 1X ONCE IV 02/25/19 16:00 02/25/19 17:59 DC 02/25/19 17:50 Metronidazole 100 ml @ 100 mls/hr Q8HRS IV 02/25/19 16:00 02/26/19 09:02 DC 02/26/19 05:33 Sodium Chloride 1,000 ml @ 100 mls/hr Q10H IV 02/25/19 16:40 02/26/19 05:06 Ondansetron HCl (Zofran) 4 mg PRN Q4HRS PRN IV NAUSEA/VOMITING 02/25/19 16:45 02/26/19 06:56 Enoxaparin Sodium (Lovenox 40mg Syringe) 40 mg QHS SQ 02/25/19 21:00 02/25/19 23:49 Piperacillin Sod/ Tazobactam Sod 3.375 gm/Sodium Chloride 50 ml @ 100 mls/hr Q6HRS IV 02/26/19 00:00 02/26/19 04:58 Vancomycin HCl (Vanco Per Pharmacy) 1 each PRN DAILY PRN MC SEE COMMENTS 02/25/19 16:45 02/26/19 09:02 DC 02/26/19 08:34 Acetaminophen (Tylenol) 1,000 mg 1X ONCE PO 02/25/19 17:00 02/25/19 17:01 DC 02/25/19 17:21 Sodium Chloride 1,000 ml @ 125 mls/hr 1X ONCE IV 02/25/19 17:00 02/26/19 00:59 DC 02/25/19 18:59 Vancomycin HCl 1.25 gm/Sodium Chloride 250 ml @ 167 mls/hr Q12H IV 02/26/19 06:00 02/26/19 09:02 DC 02/26/19 06:30 MANJINDER KYLE III DO Feb 26, 2019 10:07
--- NOTE | 2019-02-26 10:21 | CONS ---
DATE OF CONSULTATION: 02/26/2019 Charlie Canales, nurse practitioner, dictating for Dr. Lorena Mcgee, Infectious Disease. REQUESTING PHYSICIAN: Dr. Brooke. REASON FOR CONSULTATION: Sepsis. HISTORY OF PRESENT ILLNESS: The patient is a 48-year-old female who over the last 4 days or so has had worsening lower abdominal pain associated with nausea, subjective fevers and decreased appetite. She is having a reoccurrence of diverticulitis. She was evaluated by her primary care provider and had a CT scan done outpatient. Reportedly, the CT scan showed sigmoid diverticulitis complicated by contained perforation along the posterior wall of the sigmoid colon. No drainable fluid collection present. The extent of inflammation extends over the length of approximately 7-8 cm. She was referred to [facility] ER for further evaluation. On arrival, she had a temperature of 101.1 with elevated white blood cell count of 15,400 and lactic acid of 1.3. She was dosed with vancomycin, Zosyn and metronidazole. She was seen by general surgeon, Dr. Yu, with no surgical plans at this time. PAST MEDICAL HISTORY: 1. History of diverticulitis. 2. Obesity. PAST SURGICAL HISTORY: Hysterectomy. FAMILY HISTORY: Breast cancer and hypertension. 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 Nonsmoker. ALLERGIES: No known drug allergies. MEDICATIONS: Vancomycin, Zosyn and metronidazole. Other medications are available and have been reviewed on the MAR. REVIEW OF SYSTEMS: The patient denies diarrhea or blood in stools. She has noticed her urine has a bad odor since admission. Urinalysis is unremarkable for infection. She is tolerating clear liquids. She complains of headache. Per HPI, otherwise all other review of systems are negative. PHYSICAL EXAMINATION: VITAL SIGNS: Temperature 98.2, T-max 101.1, blood pressure 140/82, heart rate 94, respiratory rate 16, pulse oximetry is 93% on room air. GENERAL: The patient is propped up in bed, alert and drinking some hot tea. HEENT: Pupils equally round and reactive. Oropharynx pink and moist. NECK: Supple. LUNGS: Clear to auscultation. HEART: S1, S2. ABDOMEN: Obese, soft with lower abdominal tenderness. Bowel sounds present. EXTREMITIES: No gross edema or cyanosis. SKIN: Warm to touch. No signs of rash. NEUROLOGIC: Alert and oriented x 3. LABORATORY DATA: Today's WBC 11.1 from 15.4 on admission, hemoglobin 12.2, platelets 271,000. Sodium 142, potassium 3.7, creatinine 0.8, BUN 9. Lactic acid 1.3, total bilirubin 3.6, AST 16, ALT 20, albumin 3.6, lipase 64. Procalcitonin less than 0.10. Urinalysis unremarkable for infection. Blood cultures are pending. Chest x-ray pending. IMPRESSION: 1. Acute diverticulitis with contained perforation, reportedly seen on outpatient CT scan. 2. Fever. 3. Leukocytosis. 4. Obesity. PLAN: Discontinue the vancomycin and metronidazole as Zosyn has good intra-abdominal coverage. We will follow up on blood culture results. Discussed with Aimee. No surgical plans at this time. Thank you, Dr. Brooke for asking us to participate in the patient's care. Should you have further questions or concerns, please call. LORENA MCGEE MD DR: JANETH/jaspal JOB#: [id number] / [id number]
--- NOTE | 2019-02-26 10:41 | PDOC2 ---
CONSULT Date of Consult Date of Consult DATE: 02/26/19 TIME: 10:32 Reason for Consult Reason for Consult: Perforated diverticulitis Referring Physician Referring Physician: Dr. Brooke Identification/Chief Complaint Chief Complaint LLQ, N/V Source Source: Chart review, Patient History of Present Illness Reason for Visit: 48 yo F with c/o 4 day hx of LLQ abd pain, N/V. She has had multiple previous episodes treated with abx alone. She has not had colonoscopy. She does report feeling better since admission. Past Medical History Cardiovascular: No pertinent hx Pulmonary: No pertinent hx GI: No pertinent hx Heme/Onc: No pertinent hx Psych: No pertinent hx Rheumatologic: No pertinent hx Infectious disease: No pertinent hx ENT: No pertinent hx Renal/: No pertinent hx Endocrine: No pertinent hx Past Surgical History Past Surgical History: Hysterectomy Family History Family History: Hypertension Social History No ALCOHOL: none Drugs: None Current Problem List Problem List Problems Medical Problems: (1) Diverticulitis of colon with perforation Status: Acute (2) Fever Status: Acute (3) Sepsis Status: Acute Current Medications Current Medications Current Medications Sodium Chloride 1,000 ml @ 1,860 mls/hr Q33M IV Last administered on 02/25/19at 17:17; Start 02/25/19 at 15:32; Stop 02/25/19 at 16:32; Status DC Piperacillin Sod/ Tazobactam Sod 4.5 gm/Sodium Chloride 100 ml @ 200 mls/hr 1X ONCE IV Last administered on 02/25/19at 16:00; Start 02/25/19 at 15:45; Stop 02/25/19 at 16:14; Status DC Vancomycin HCl (Vanco Per Pharmacy) 1 each 1X ONCE MC ; Start 02/25/19 at 15:45; Stop 02/25/19 at 15:46; Status UNV Morphine Sulfate (Morphine Sulfate) 4 mg PRN Q15MIN PRN IV/SQ PAIN GREATER THAN 3/10; Start 02/25/19 at 15:45; Stop 02/26/19 at 15:44 Vancomycin HCl 2 gm/Sodium Chloride 500 ml @ 250 mls/hr 1X ONCE IV Last administered on 02/25/19at 17:50; Start 02/25/19 at 16:00; Stop 02/25/19 at 17:59; Status DC Metronidazole 100 ml @ 100 mls/hr Q8HRS IV Last administered on 02/26/19at 05:33; Start 02/25/19 at 16:00; Stop 02/26/19 at 09:02; Status DC Ondansetron HCl (Zofran) 4 mg 1X ONCE IVP ; Start 02/25/19 at 15:45; Stop 02/25/19 at 15:46; Status DC Sodium Chloride (Normal Saline Flush) 3 ml QSHIFT PRN IV AFTER MEDS AND BLOOD DRAWS; Start 02/25/19 at 16:45 Sodium Chloride 1,000 ml @ 100 mls/hr Q10H IV Last administered on 02/26/19at 05:06; Start 02/25/19 at 16:40 Ondansetron HCl (Zofran) 4 mg PRN Q4HRS PRN IV NAUSEA/VOMITING Last administered on 02/26/19at 06:56; Start 02/25/19 at 16:45 Acetaminophen (Tylenol Supp) 650 mg PRN Q4HRS PRN WV TEMP OVER 100.4F OR MILD PAIN; Start 02/25/19 at 16:45 Albuterol Sulfate (Ventolin Neb Soln) 2.5 mg PRN Q4HRS PRN NEB SHORTNESS OF BREATH; Start 02/25/19 at 16:45 Hydromorphone HCl (Dilaudid) 1 mg PRN Q2HRS PRN IV SEVERE PAIN 7-10; Start 02/25/19 at 16:45 Enoxaparin Sodium (Lovenox 40mg Syringe) 40 mg QHS SQ Last administered on 02/25/19at 23:49; Start 02/25/19 at 21:00 Piperacillin Sod/ Tazobactam Sod 3.375 gm/Sodium Chloride 50 ml @ 100 mls/hr Q6HRS IV Last administered on 02/26/19at 04:58; Start 02/26/19 at 00:00 Sodium Chloride 1,000 ml @ 1,860 mls/hr Q33M IV ; Start 02/25/19 at 16:45; Stop 02/25/19 at 17:45; Status DC Sodium Chloride 500 ml @ 1,000 mls/hr PRN Q30MIN PRN IV SEE COMMENTS; Start 02/25/19 at 16:45 Vancomycin HCl (Vanco Per Pharmacy) 1 each PRN DAILY PRN MC SEE COMMENTS Last administered on 02/26/19at 08:34; Start 02/25/19 at 16:45; Stop 02/26/19 at 09:02; Status DC Norepinephrine Bitartrate 250 ml @ 0 mls/hr CONT PRN IV SEE I/O RECORD; Start 02/25/19 at 16:45 Dobutamine HCl/ Dextrose 250 ml @ 0 mls/hr CONT PRN IV SEE I/O RECORD; Start 02/25/19 at 16:45 Piperacillin Sod/ Tazobactam Sod 3.375 gm/Sodium Chloride 50 ml @ 100 mls/hr 1X ONCE IV ; Start 02/25/19 at 17:00; Stop 02/25/19 at 17:29; Status Cancel Acetaminophen (Tylenol) 1,000 mg 1X ONCE PO Last administered on 02/25/19at 17:21; Start 02/25/19 at 17:00; Stop 02/25/19 at 17:01; Status DC Ondansetron HCl (Zofran) 4 mg PRN Q8HRS PRN IV NAUSEA/VOMITING; Start 02/25/19 at 17:00; Stop 02/26/19 at 16:59 Sodium Chloride 1,000 ml @ 125 mls/hr 1X ONCE IV Last administered on 02/25/19at 18:59; Start 02/25/19 at 17:00; Stop 02/26/19 at 00:59; Status DC Vancomycin HCl 1.25 gm/Sodium Chloride 250 ml @ 167 mls/hr Q12H IV Last administered on 02/26/19at 06:30; Start 02/26/19 at 06:00; Stop 02/26/19 at 09:02; Status DC Vancomycin HCl (Vancomycin Trough Level) 1 each 1X ONCE MC ; Start 02/27/19 at 05:30; Stop 02/26/19 at 09:09; Status DC Influenza Virus Vaccine Quadrival (Afluria Quad 2019-20 (3yr Up) Syringe) 0.5 ml ONCE ONCE VAX IM ; Start 02/26/19 at 09:00; Stop 02/26/19 at 09:01; Status DC Acetaminophen (Tylenol) 650 mg PRN Q6HRS PRN PO pain Last administered on 02/26/19at 10:19; Start 02/26/19 at 09:15 Active Scripts Active Reported Percocet 5-325 Mg Tablet (Oxycodone/Acetaminophen) 1 Each Tablet 1-2 Tab PO Q4- 6HRS Motrin Ib (Ibuprofen) 200 Mg Tablet 200 Mg PO Q6H Allergies Allergies: Coded Allergies: No Known Drug Allergies (Unverified , 11/24/14) ROS Gastrointestinal: Yes Nausea, Yes Vomiting, Yes Abdominal Pain Physical Exam General: Alert, Oriented X3, Cooperative, mild distress HEENT: Atraumatic Lungs: Normal air movement Abdomen: Soft, Other (TTP LLQ) Extremities: No clubbing, No cyanosis Skin: No rashes, No breakdown Neuro: Normal speech, Sensation intact Psych/Mental Status: Mental status NL, Mood NL Vitals VITALS Vital Signs Date Time Temp Pulse Resp B/P (MAP) Pulse Ox O2 Delivery O2 Flow Rate FiO2 02/26/19 07:00 98.2 94 16 140/82 (101) 93 Room Air 98.2 Labs Labs Laboratory Tests Test 02/25/19 15:30 02/25/19 15:54 02/26/19 02:55 White Blood Count 15.4 x10^3/uL (4.0-11.0) 11.1 x10^3/uL (4.0-11.0) Red Blood Count 4.82 x10^6/uL (3.50-5.40) 4.23 x10^6/uL (3.50-5.40) Hemoglobin 13.9 g/dL (12.0-15.5) 12.2 g/dL (12.0-15.5) Hematocrit 41.2 % (36.0-47.0) 36.5 % (36.0-47.0) Mean Corpuscular Volume 86 fL (79-100) 86 fL (79-100) Mean Corpuscular Hemoglobin 29 pg (25-35) 29 pg (25-35) Mean Corpuscular Hemoglobin Concent 34 g/dL (31-37) 33 g/dL (31-37) Red Cell Distribution Width 13.5 % (11.5-14.5) 13.7 % (11.5-14.5) Platelet Count 358 x10^3/uL (140-400) 271 x10^3/uL (140-400) Neutrophils (%) (Auto) 83 % (31-73) 85 % (31-73) Lymphocytes (%) (Auto) 8 % (24-48) 7 % (24-48) Monocytes (%) (Auto) 8 % (0-9) 7 % (0-9) Eosinophils (%) (Auto) 0 % (0-3) 1 % (0-3) Basophils (%) (Auto) 1 % (0-3) 0 % (0-3) Neutrophils # (Auto) 12.7 x10^3/uL (1.8-7.7) 9.5 x10^3/uL (1.8-7.7) Lymphocytes # (Auto) 1.3 x10^3/uL (1.0-4.8) 0.8 x10^3/uL (1.0-4.8) Monocytes # (Auto) 1.3 x10^3/uL (0.0-1.1) 0.8 x10^3/uL (0.0-1.1) Eosinophils # (Auto) 0.1 x10^3/uL (0.0-0.7) 0.1 x10^3/uL (0.0-0.7) Basophils # (Auto) 0.1 x10^3/uL (0.0-0.2) 0.0 x10^3/uL (0.0-0.2) Segmented Neutrophils % 87 % (35-66) Band Neutrophils % % (0-9) Lymphocytes % 8 % (24-48) Monocytes % 4 % (0-10) Eosinophils % 1 % (0-5) Platelet Estimate Adequate (ADEQUATE) Giant Platelets Occ Prothrombin Time 15.9 SEC (11.7-14.0) Prothromb Time International Ratio 1.3 (0.8-1.1) Activated Partial Thromboplast Time 33 SEC (24-38) Fibrinogen 750 mg/dL (200-440) D-Dimer (Nancy) 1.61 ug/mlFEU (0.00-0.50) Sodium Level 142 mmol/L (136-145) 142 mmol/L (136-145) Potassium Level 3.7 mmol/L (3.5-5.1) 3.7 mmol/L (3.5-5.1) Chloride Level 102 mmol/L (98-107) 108 mmol/L (98-107) Carbon Dioxide Level 26 mmol/L (21-32) 21 mmol/L (21-32) Anion Gap 14 (6-14) 13 (6-14) Blood Urea Nitrogen 10 mg/dL (7-20) 9 mg/dL (7-20) Creatinine 1.0 mg/dL (0.6-1.0) 0.8 mg/dL (0.6-1.0) Estimated GFR (Cockcroft-Gault) 58.9 76.2 BUN/Creatinine Ratio 10 (6-20) Glucose Level 87 mg/dL (70-99) 72 mg/dL (70-99) Lactic Acid Level 1.3 mmol/L (0.4-2.0) Calcium Level 9.7 mg/dL (8.5-10.1) 8.6 mg/dL (8.5-10.1) Total Bilirubin 3.6 mg/dL (0.2-1.0) Aspartate Amino Transf (AST/SGOT) 16 U/L (15-37) Alanine Aminotransferase (ALT/SGPT) 20 U/L (14-59) Alkaline Phosphatase 83 U/L (46-116) Total Protein 7.8 g/dL (6.4-8.2) Albumin 3.6 g/dL (3.4-5.0) Albumin/Globulin Ratio 0.9 (1.0-1.7) Lipase 64 U/L (73-393) Procalcitonin < 0.10 ng/mL (0.00-0.10) Urine Collection Type Void Urine Color Alycia Urine Clarity Clear Urine pH 6.0 Urine Specific [place] >=1.030 Urine Protein 30 mg/dL (NEG-TRACE) Urine Glucose (UA) Negative mg/dL (NEG) Urine Ketones (Stick) 40 mg/dL (NEG) Urine Blood Moderate (NEG) Urine Nitrite Negative (NEG) Urine Bilirubin Small (NEG) Urine Urobilinogen Dipstick 1.0 mg/dL (0.2 mg/dL) Urine Leukocyte Esterase Negative (NEG) Urine RBC 3-5 /HPF (0-2) Urine WBC 0 /HPF (0-4) Urine Squamous Epithelial Cells Occ /LPF Urine Bacteria 0 /HPF (0-FEW) Laboratory Tests Test 02/25/19 15:30 02/25/19 15:54 02/26/19 02:55 White Blood Count 15.4 x10^3/uL (4.0-11.0) 11.1 x10^3/uL (4.0-11.0) Red Blood Count 4.82 x10^6/uL (3.50-5.40) 4.23 x10^6/uL (3.50-5.40) Hemoglobin 13.9 g/dL (12.0-15.5) 12.2 g/dL (12.0-15.5) Hematocrit 41.2 % (36.0-47.0) 36.5 % (36.0-47.0) Mean Corpuscular Volume 86 fL (79-100) 86 fL (79-100) Mean Corpuscular Hemoglobin 29 pg (25-35) 29 pg (25-35) Mean Corpuscular Hemoglobin Concent 34 g/dL (31-37) 33 g/dL (31-37) Red Cell Distribution Width 13.5 % (11.5-14.5) 13.7 % (11.5-14.5) Platelet Count 358 x10^3/uL (140-400) 271 x10^3/uL (140-400) Neutrophils (%) (Auto) 83 % (31-73) 85 % (31-73) Lymphocytes (%) (Auto) 8 % (24-48) 7 % (24-48) Monocytes (%) (Auto) 8 % (0-9) 7 % (0-9) Eosinophils (%) (Auto) 0 % (0-3) 1 % (0-3) Basophils (%) (Auto) 1 % (0-3) 0 % (0-3) Neutrophils # (Auto) 12.7 x10^3/uL (1.8-7.7) 9.5 x10^3/uL (1.8-7.7) Lymphocytes # (Auto) 1.3 x10^3/uL (1.0-4.8) 0.8 x10^3/uL (1.0-4.8) Monocytes # (Auto) 1.3 x10^3/uL (0.0-1.1) 0.8 x10^3/uL (0.0-1.1) Eosinophils # (Auto) 0.1 x10^3/uL (0.0-0.7) 0.1 x10^3/uL (0.0-0.7) Basophils # (Auto) 0.1 x10^3/uL (0.0-0.2) 0.0 x10^3/uL (0.0-0.2) Segmented Neutrophils % 87 % (35-66) Band Neutrophils % % (0-9) Lymphocytes % 8 % (24-48) Monocytes % 4 % (0-10) Eosinophils % 1 % (0-5) Platelet Estimate Adequate (ADEQUATE) Giant Platelets Occ Prothrombin Time 15.9 SEC (11.7-14.0) Prothromb Time International Ratio 1.3 (0.8-1.1) Activated Partial Thromboplast Time 33 SEC (24-38) Fibrinogen 750 mg/dL (200-440) D-Dimer (Nancy) 1.61 ug/mlFEU (0.00-0.50) Sodium Level 142 mmol/L (136-145) 142 mmol/L (136-145) Potassium Level 3.7 mmol/L (3.5-5.1) 3.7 mmol/L (3.5-5.1) Chloride Level 102 mmol/L (98-107) 108 mmol/L (98-107) Carbon Dioxide Level 26 mmol/L (21-32) 21 mmol/L (21-32) Anion Gap 14 (6-14) 13 (6-14) Blood Urea Nitrogen 10 mg/dL (7-20) 9 mg/dL (7-20) Creatinine 1.0 mg/dL (0.6-1.0) 0.8 mg/dL (0.6-1.0) Estimated GFR (Cockcroft-Gault) 58.9 76.2 BUN/Creatinine Ratio 10 (6-20) Glucose Level 87 mg/dL (70-99) 72 mg/dL (70-99) Lactic Acid Level 1.3 mmol/L (0.4-2.0) Calcium Level 9.7 mg/dL (8.5-10.1) 8.6 mg/dL (8.5-10.1) Total Bilirubin 3.6 mg/dL (0.2-1.0) Aspartate Amino Transf (AST/SGOT) 16 U/L (15-37) Alanine Aminotransferase (ALT/SGPT) 20 U/L (14-59) Alkaline Phosphatase 83 U/L (46-116) Total Protein 7.8 g/dL (6.4-8.2) Albumin 3.6 g/dL (3.4-5.0) Albumin/Globulin Ratio 0.9 (1.0-1.7) Lipase 64 U/L (73-393) Procalcitonin < 0.10 ng/mL (0.00-0.10) Urine Collection Type Void Urine Color Alycia Urine Clarity Clear Urine pH 6.0 Urine Specific [place] >=1.030 Urine Protein 30 mg/dL (NEG-TRACE) Urine Glucose (UA) Negative mg/dL (NEG) Urine Ketones (Stick) 40 mg/dL (NEG) Urine Blood Moderate (NEG) Urine Nitrite Negative (NEG) Urine Bilirubin Small (NEG) Urine Urobilinogen Dipstick 1.0 mg/dL (0.2 mg/dL) Urine Leukocyte Esterase Negative (NEG) Urine RBC 3-5 /HPF (0-2) Urine WBC 0 /HPF (0-4) Urine Squamous Epithelial Cells Occ /LPF Urine Bacteria 0 /HPF (0-FEW) Images Images Outside CT reported to show perforated sigmoid diverticulitis, no abscess Assessment/Plan Assessment/Plan Perforated diverticulitis appears to be improved with abx and bowel rest does c/o RAMOS secondary not eating, will offer clears should be able to avoid surgery, but would consider electively, given multiple recurrences. Recommend colonoscopy in a few months. Thanks for consult! DWIGHT CARMONA MD Feb 26, 2019 10:41
--- NOTE | 2019-02-26 10:54 | NUR ---
No surgery needed at this time. Patient would like to "hold off" on flu vaccine administration. She states she will take it prior to DC, however not at this time.
[2019-02-26 11:00] VITALS: BP 116/76
--- NOTE | 2019-02-26 12:19 | PDOC2 ---
GI CONSULT Reason For Consult: Diverticulitis HPI: HPI: 48 y/o female who has been ill w/ lower abd discomfort spreading from LLQ to RLQ since last Sunday. [place] like previous episode of diverticulitis but worse. Outpt CT @ [facility] showed sigmoid diverticulitis w/ perforation. She was advised to come to [facility] ER for admission. Followed by ID and surgery - on IV atbx and clear liquids. Pain improved today, has stooled a couple times. Previous episode of diverticulitis reportedly diagnosed by CT several years ago - says was treated by a provider in Dr. Cronin's office as an outpt w/ PO atbx, clear liquids x 3 days, and advised to stay away from nuts and seeds. No previous colonoscopy. H/o heartburn twice weekly - takes famotidine once weekly w/ improvement - doesn't like to take medications as a rule. Since symptoms began on Sunday, has had worsening heartburn - couldn't sleep last night. Denies n/v, dysphagia, chronic abd pain, diarrhea, constipation, hematochezia, melena, and weight loss. No previous EGD. No GB, liver, pancreas, or PUD history. No NSAIDs. PMH: PMH: hysterectomy, foot surgery FH: Family History: Cancer (father - skin) Social History: Smoke: No ALCOHOL: none Drugs: None ROS: GEN: +fever HEENT: Denies blurred vision, sore throat CV: Denies chest pain RESP: Denies shortness of air, cough GI: Per HPI : Denies hematuria, dysuria ENDO: Denies weight changes NEURO: Denies confusion, dizziness MSK: Denies weakness, joint pain/swelling SKIN: Denies jaundice, pruritus Vitals: Vitals: Vital Signs Date Time Temp Pulse Resp B/P (MAP) Pulse Ox O2 Delivery O2 Flow Rate FiO2 02/26/19 11:00 98.2 91 16 116/76 (89) 95 Room Air 98.2 Labs: Labs: Laboratory Tests Test 02/25/19 15:30 02/25/19 15:54 02/26/19 02:55 White Blood Count 15.4 x10^3/uL (4.0-11.0) 11.1 x10^3/uL (4.0-11.0) Red Blood Count 4.82 x10^6/uL (3.50-5.40) 4.23 x10^6/uL (3.50-5.40) Hemoglobin 13.9 g/dL (12.0-15.5) 12.2 g/dL (12.0-15.5) Hematocrit 41.2 % (36.0-47.0) 36.5 % (36.0-47.0) Mean Corpuscular Volume 86 fL (79-100) 86 fL (79-100) Mean Corpuscular Hemoglobin 29 pg (25-35) 29 pg (25-35) Mean Corpuscular Hemoglobin Concent 34 g/dL (31-37) 33 g/dL (31-37) Red Cell Distribution Width 13.5 % (11.5-14.5) 13.7 % (11.5-14.5) Platelet Count 358 x10^3/uL (140-400) 271 x10^3/uL (140-400) Neutrophils (%) (Auto) 83 % (31-73) 85 % (31-73) Lymphocytes (%) (Auto) 8 % (24-48) 7 % (24-48) Monocytes (%) (Auto) 8 % (0-9) 7 % (0-9) Eosinophils (%) (Auto) 0 % (0-3) 1 % (0-3) Basophils (%) (Auto) 1 % (0-3) 0 % (0-3) Neutrophils # (Auto) 12.7 x10^3/uL (1.8-7.7) 9.5 x10^3/uL (1.8-7.7) Lymphocytes # (Auto) 1.3 x10^3/uL (1.0-4.8) 0.8 x10^3/uL (1.0-4.8) Monocytes # (Auto) 1.3 x10^3/uL (0.0-1.1) 0.8 x10^3/uL (0.0-1.1) Eosinophils # (Auto) 0.1 x10^3/uL (0.0-0.7) 0.1 x10^3/uL (0.0-0.7) Basophils # (Auto) 0.1 x10^3/uL (0.0-0.2) 0.0 x10^3/uL (0.0-0.2) Segmented Neutrophils % 87 % (35-66) Band Neutrophils % % (0-9) Lymphocytes % 8 % (24-48) Monocytes % 4 % (0-10) Eosinophils % 1 % (0-5) Platelet Estimate Adequate (ADEQUATE) Giant Platelets Occ Prothrombin Time 15.9 SEC (11.7-14.0) Prothromb Time International Ratio 1.3 (0.8-1.1) Activated Partial Thromboplast Time 33 SEC (24-38) Fibrinogen 750 mg/dL (200-440) D-Dimer (Nancy) 1.61 ug/mlFEU (0.00-0.50) Sodium Level 142 mmol/L (136-145) 142 mmol/L (136-145) Potassium Level 3.7 mmol/L (3.5-5.1) 3.7 mmol/L (3.5-5.1) Chloride Level 102 mmol/L (98-107) 108 mmol/L (98-107) Carbon Dioxide Level 26 mmol/L (21-32) 21 mmol/L (21-32) Anion Gap 14 (6-14) 13 (6-14) Blood Urea Nitrogen 10 mg/dL (7-20) 9 mg/dL (7-20) Creatinine 1.0 mg/dL (0.6-1.0) 0.8 mg/dL (0.6-1.0) Estimated GFR (Cockcroft-Gault) 58.9 76.2 BUN/Creatinine Ratio 10 (6-20) Glucose Level 87 mg/dL (70-99) 72 mg/dL (70-99) Lactic Acid Level 1.3 mmol/L (0.4-2.0) Calcium Level 9.7 mg/dL (8.5-10.1) 8.6 mg/dL (8.5-10.1) Total Bilirubin 3.6 mg/dL (0.2-1.0) Aspartate Amino Transf (AST/SGOT) 16 U/L (15-37) Alanine Aminotransferase (ALT/SGPT) 20 U/L (14-59) Alkaline Phosphatase 83 U/L (46-116) Total Protein 7.8 g/dL (6.4-8.2) Albumin 3.6 g/dL (3.4-5.0) Albumin/Globulin Ratio 0.9 (1.0-1.7) Lipase 64 U/L (73-393) Procalcitonin < 0.10 ng/mL (0.00-0.10) Urine Collection Type Void Urine Color Alycia Urine Clarity Clear Urine pH 6.0 Urine Specific [place] >=1.030 Urine Protein 30 mg/dL (NEG-TRACE) Urine Glucose (UA) Negative mg/dL (NEG) Urine Ketones (Stick) 40 mg/dL (NEG) Urine Blood Moderate (NEG) Urine Nitrite Negative (NEG) Urine Bilirubin Small (NEG) Urine Urobilinogen Dipstick 1.0 mg/dL (0.2 mg/dL) Urine Leukocyte Esterase Negative (NEG) Urine RBC 3-5 /HPF (0-2) Urine WBC 0 /HPF (0-4) Urine Squamous Epithelial Cells Occ /LPF Urine Bacteria 0 /HPF (0-FEW) Allergies: Coded Allergies: No Known Drug Allergies (Unverified , 11/24/14) Medications: Current Medications Medications (Trade) Dose Ordered Sig/[place] Route PRN Reason Start Time Stop Time Status Last Admin Dose Admin Sodium Chloride 1,000 ml @ 1,860 mls/hr Q33M IV 02/25/19 15:32 02/25/19 16:32 DC 02/25/19 17:17 Piperacillin Sod/ Tazobactam Sod 4.5 gm/Sodium Chloride 100 ml @ 200 mls/hr 1X ONCE IV 02/25/19 15:45 02/25/19 16:14 DC 02/25/19 16:00 Vancomycin HCl 2 gm/Sodium Chloride 500 ml @ 250 mls/hr 1X ONCE IV 02/25/19 16:00 02/25/19 17:59 DC 02/25/19 17:50 Metronidazole 100 ml @ 100 mls/hr Q8HRS IV 02/25/19 16:00 02/26/19 09:02 DC 02/26/19 05:33 Sodium Chloride 1,000 ml @ 100 mls/hr Q10H IV 02/25/19 16:40 02/26/19 05:06 Ondansetron HCl (Zofran) 4 mg PRN Q4HRS PRN IV NAUSEA/VOMITING 02/25/19 16:45 02/26/19 06:56 Enoxaparin Sodium (Lovenox 40mg Syringe) 40 mg QHS SQ 02/25/19 21:00 02/25/19 23:49 Piperacillin Sod/ Tazobactam Sod 3.375 gm/Sodium Chloride 50 ml @ 100 mls/hr Q6HRS IV 02/26/19 00:00 02/26/19 04:58 Vancomycin HCl (Vanco Per Pharmacy) 1 each PRN DAILY PRN MC SEE COMMENTS 02/25/19 16:45 02/26/19 09:02 DC 02/26/19 08:34 Acetaminophen (Tylenol) 1,000 mg 1X ONCE PO 02/25/19 17:00 02/25/19 17:01 DC 02/25/19 17:21 Sodium Chloride 1,000 ml @ 125 mls/hr 1X ONCE IV 02/25/19 17:00 02/26/19 00:59 DC 02/25/19 18:59 Vancomycin HCl 1.25 gm/Sodium Chloride 250 ml @ 167 mls/hr Q12H IV 02/26/19 06:00 02/26/19 09:02 DC 02/26/19 06:30 Acetaminophen (Tylenol) 650 mg PRN Q6HRS PRN PO pain 02/26/19 09:15 02/26/19 10:19 Imaging: Imaging: CXR 02/26/19 pending PE: GEN: NAD HEENT: Atraumatic, PERRL LUNGS: CTAB HEART: RRR ABD: overweight, quiet BS, mild LLQ discomfort - less toward suprapubic region and RLQ, soft EXTREMITY: No edema SKIN: No rashes, no jaundice NEURO/PSYCH: A & O �3 A/P: A/P: Sigmoid diverticulitis w/ perf - first episode several years ago, treated as outpt Fever, tachycardia, leukocytosis Heartburn CRC screen - average risk, no previous Elevated bilirubin (3.6 yesterday) -- Trying clears - defer diet to surgery. Continue atbx per ID - blood culture pending. PPI, Tums for heartburn. Discussed outpt colonoscopy in 2-3 months - consider tandem EGD then w/ h/o heartburn. Recheck bilirubin, consider RUQ US. RUT PARKER Feb 26, 2019 12:19
[2019-02-26] MEDS ORDERED: CALCIUM CARBONATE 500 MG TAB.CHEW PO PRN (12:30)
--- NOTE | 2019-02-26 12:41 | RAD ---
CHEST PA LATERAL History: Fever Comparison: 11/24/2014 two-view chest x-ray exam. Findings: Frontal and lateral views of chest were obtained. The cardiomediastinal silhouette is normal. Pulmonary vasculature is normal. The lungs are clear. No pleural effusion or pneumothorax is seen. There is no acute bone abnormality. Contrast within the colon is partially seen. IMPRESSION: No acute cardiopulmonary process. Electronically signed by: Armando Johns MD (02/26/2019 12:38 PM) [facility]
[2019-02-26 12:46] LABS: ALBUMIN 2.6 g/dL (3.4-5.0); DIRECT BILIRUBIN 0.5 mg/dL (0.0-0.2); TOTAL BILIRUBIN 3.2 mg/dL (0.2-1.0); TOTAL PROTEIN 6.2 g/dL (6.4-8.2)
--- NOTE | 2019-02-26 14:01 | NUR ---
SS following for discharge planning. SS reviewed pt chart. Pt is from home with spouse and is currently on room air. No discharge needs noted at this time. SS will continue to follow for discharge planning.
[2019-02-26 15:00] VITALS: BP 120/82
[2019-02-26] MEDS: PANTOPRAZOLE 40 MG TABLET.DR. PO SCH (16:49)
[2019-02-26 19:00] VITALS: BP 141/97
[2019-02-26 23:00] VITALS: BP 129/77
[2019-02-26] MEDS: ENOXAPARIN 40 MG/0.4 ML SYRINGE. SQ SCH (23:15)
[2019-02-27 03:00] VITALS: BP 107/59
[2019-02-27] MEDS: PIPERACILLIN/TAZOBACTAM 3.375 GM in IV NORMAL SALINE 50ML 50 ML IV SCH ×4 (05:37→23:32)
[2019-02-27 07:00] VITALS: BP 119/78
--- NOTE | 2019-02-27 09:00 | NUR ---
Pt continuing to request holding off on the flu vaccination until she feels better. She will take it prior to DC, however not right now.
--- NOTE | 2019-02-27 09:33 | PDOC ---
Infectious Disease Note Subjective Subjective Feeling better Less lower abdominal pain + nausea, no vomiting Tolerating clear liquids Denies F/C/S ROS ROS per HPI Vital Sign Vital Signs Vital Signs Date Time Temp Pulse Resp B/P (MAP) Pulse Ox O2 Delivery O2 Flow Rate FiO2 02/27/19 08:00 Room Air 02/27/19 07:00 98.1 84 20 119/78 (92) 92 98.1 Physical Exam PHYSICAL EXAM GENERAL: Propped up in bed, alert, NAD HEENT: Pupils equally round and reactive. Oropharynx pink and moist. NECK: Supple. LUNGS: Clear to auscultation. HEART: S1, S2. ABDOMEN: Obese, soft with lower abdominal tenderness. Bowel sounds present. EXTREMITIES: No gross edema or cyanosis. SKIN: Warm to touch. No signs of rash. NEUROLOGIC: Alert and oriented x 3. Labs Lab Laboratory Tests Test 02/27/19 05:37 Creatinine 0.8 mg/dL (0.6-1.0) Estimated GFR (Cockcroft-Gault) 76.2 Micro Microbiology 02/25/19 Blood Culture - Preliminary, Resulted NO GROWTH AFTER 1 DAY Objective Assessment Acute diverticulitis with contained perforation (OP CT scan) Fever Leukocytosis Obesity Plan Plan of Care Continue Zosyn f/u cultures D/w Dr. Yu, no surgical plans D/w Dr. Carbajal D/w nursing Has some pain with eating and occ nausea. Cont Zosyn - may need repeat CT if no improvement D/w Attending Co-Sign Attending Co-Sign The patient was seen and interviewed as well as examined at the bedside. The chart was reviewed. The case was discussed. Agree with the plan of care. PARKER SANCHEZ APRN Feb 27, 2019 09:33 LORENA MCGEE MD Feb 27, 2019 17:28
--- NOTE | 2019-02-27 09:40 | PDOC ---
[employer] PROGRESS NOTE Chief Complaint Chief Complaint Abdominal pain History of Present Illness History of Present Illness 02/27/19 Pt seen and examined Pt is feeling a lot better and states she has no pain, nausea, or vomiting. We will advance diet and see how she tolerates the food and discharge after that. Pt is hungry. Consulted with ID and they may want to hold her another day but from our standpoint she looks stable. MARIA G REGALADO 02/26/19 Pt seen and examined Pt had CXR today PT is feeling better and sitting up right eating clear liquid diet We explained to her about her diverticulitis condition and ways to help keep her bowel soft and to avoid seeds Reviewed chart and labs MARIA G REGALADO Vitals/I&O Vitals/I&O: Vital Signs Date Time Temp Pulse Resp B/P (MAP) Pulse Ox O2 Delivery O2 Flow Rate FiO2 02/27/19 08:00 Room Air 02/27/19 07:00 98.1 84 20 119/78 (92) 92 98.1 I & O 02/26/19 02/27/19 02/27/19 17:00 01:00 09:00 Intake Total 180 ml 1100 ml Output Total 0 ml 0 ml Balance 180 ml 1100 ml 0 ml Physical Exam Physical Exam: GENERAL: Propped up in bed, alert, NAD HEENT: Pupils equally round and reactive. Oropharynx pink and moist. NECK: Supple. LUNGS: Clear to auscultation. HEART: S1, S2. ABDOMEN: Obese, soft with lower abdominal tenderness. Bowel sounds present. EXTREMITIES: No gross edema or cyanosis. SKIN: Warm to touch. No signs of rash. NEUROLOGIC: Alert and oriented x 3. General: Alert, Oriented X3, Cooperative, mild distress Abdomen: Soft, Other (TTP LLQ) Extremities: No clubbing, No cyanosis Skin: No rashes, No breakdown Labs Labs: Laboratory Tests Test 02/27/19 05:37 Creatinine 0.8 mg/dL (0.6-1.0) Estimated GFR (Cockcroft-Gault) 76.2 Review of Systems Review of Systems: Denies chest pain Denies SOB Assessment and Plan Assessmemt and Plan Problems Medical Problems: (1) Diverticulitis of colon with perforation Status: Acute (2) Fever Status: Acute (3) Sepsis Status: Acute Assessment Acute diverticulitis of sigmoid colon with perforation Sepsis Obesity Leukocytosis Fever PLAN Advance diet Zosyn per ID Tylenol PRN Appreciate ID consult Appreciate surgery consult Appreciate GI consult DVT prophylaxis Home meds Discharge if tolerates advancing diet Comment Review of Relevant I have reviewed the following items georges (where applicable) has been applied. Medications: Current Medications Medications (Trade) Dose Ordered Sig/[place] Route PRN Reason Start Time Stop Time Status Last Admin Dose Admin Acetaminophen (Tylenol) 650 mg PRN Q6HRS PRN PO pain 02/26/19 09:15 02/26/19 10:19 Pantoprazole Sodium (Protonix) 40 mg DAILYAC PO 02/26/19 16:30 02/26/19 16:49 MANJINDER KYLE K III DO Feb 27, 2019 09:40
--- NOTE | 2019-02-27 10:14 | PDOC ---
SURGICAL PROGRESS NOTE Subjective overall feeling better much less pain no n/v taking clears, slowly, gets full easily Vital Signs Vital Signs Date Time Temp Pulse Resp B/P (MAP) Pulse Ox O2 Delivery O2 Flow Rate FiO2 02/27/19 08:00 Room Air 02/27/19 07:00 98.1 84 20 119/78 (92) 92 98.1 I&O Intake and Output 02/27/19 06:59 Intake Total 2050 ml Output Total 500 ml Balance 1550 ml Intake Oral 950 ml IV Total 1100 ml Output Urine Total 500 ml General: Alert, Cooperative Abdomen: Soft, Other (mild ttp lower abdomen ) Labs Laboratory Tests Test 02/25/19 15:30 02/25/19 15:54 02/26/19 02:55 02/27/19 05:37 White Blood Count 15.4 x10^3/uL (4.0-11.0) 11.1 x10^3/uL (4.0-11.0) Red Blood Count 4.82 x10^6/uL (3.50-5.40) 4.23 x10^6/uL (3.50-5.40) Hemoglobin 13.9 g/dL (12.0-15.5) 12.2 g/dL (12.0-15.5) Hematocrit 41.2 % (36.0-47.0) 36.5 % (36.0-47.0) Mean Corpuscular Volume 86 fL (79-100) 86 fL (79-100) Mean Corpuscular Hemoglobin 29 pg (25-35) 29 pg (25-35) Mean Corpuscular Hemoglobin Concent 34 g/dL (31-37) 33 g/dL (31-37) Red Cell Distribution Width 13.5 % (11.5-14.5) 13.7 % (11.5-14.5) Platelet Count 358 x10^3/uL (140-400) 271 x10^3/uL (140-400) Neutrophils (%) (Auto) 83 % (31-73) 85 % (31-73) Lymphocytes (%) (Auto) 8 % (24-48) 7 % (24-48) Monocytes (%) (Auto) 8 % (0-9) 7 % (0-9) Eosinophils (%) (Auto) 0 % (0-3) 1 % (0-3) Basophils (%) (Auto) 1 % (0-3) 0 % (0-3) Neutrophils # (Auto) 12.7 x10^3/uL (1.8-7.7) 9.5 x10^3/uL (1.8-7.7) Lymphocytes # (Auto) 1.3 x10^3/uL (1.0-4.8) 0.8 x10^3/uL (1.0-4.8) Monocytes # (Auto) 1.3 x10^3/uL (0.0-1.1) 0.8 x10^3/uL (0.0-1.1) Eosinophils # (Auto) 0.1 x10^3/uL (0.0-0.7) 0.1 x10^3/uL (0.0-0.7) Basophils # (Auto) 0.1 x10^3/uL (0.0-0.2) 0.0 x10^3/uL (0.0-0.2) Segmented Neutrophils % 87 % (35-66) Band Neutrophils % % (0-9) Lymphocytes % 8 % (24-48) Monocytes % 4 % (0-10) Eosinophils % 1 % (0-5) Platelet Estimate Adequate (ADEQUATE) Giant Platelets Occ Prothrombin Time 15.9 SEC (11.7-14.0) Prothromb Time International Ratio 1.3 (0.8-1.1) Activated Partial Thromboplast Time 33 SEC (24-38) Fibrinogen 750 mg/dL (200-440) D-Dimer (Nancy) 1.61 ug/mlFEU (0.00-0.50) Sodium Level 142 mmol/L (136-145) 142 mmol/L (136-145) Potassium Level 3.7 mmol/L (3.5-5.1) 3.7 mmol/L (3.5-5.1) Chloride Level 102 mmol/L (98-107) 108 mmol/L (98-107) Carbon Dioxide Level 26 mmol/L (21-32) 21 mmol/L (21-32) Anion Gap 14 (6-14) 13 (6-14) Blood Urea Nitrogen 10 mg/dL (7-20) 9 mg/dL (7-20) Creatinine 1.0 mg/dL (0.6-1.0) 0.8 mg/dL (0.6-1.0) 0.8 mg/dL (0.6-1.0) Estimated GFR (Cockcroft-Gault) 58.9 76.2 76.2 BUN/Creatinine Ratio 10 (6-20) Glucose Level 87 mg/dL (70-99) 72 mg/dL (70-99) Lactic Acid Level 1.3 mmol/L (0.4-2.0) Calcium Level 9.7 mg/dL (8.5-10.1) 8.6 mg/dL (8.5-10.1) Total Bilirubin 3.6 mg/dL (0.2-1.0) 3.2 mg/dL (0.2-1.0) Aspartate Amino Transf (AST/SGOT) 16 U/L (15-37) 15 U/L (15-37) Alanine Aminotransferase (ALT/SGPT) 20 U/L (14-59) 13 U/L (14-59) Alkaline Phosphatase 83 U/L (46-116) 63 U/L (46-116) Total Protein 7.8 g/dL (6.4-8.2) 6.2 g/dL (6.4-8.2) Albumin 3.6 g/dL (3.4-5.0) 2.6 g/dL (3.4-5.0) Albumin/Globulin Ratio 0.9 (1.0-1.7) Lipase 64 U/L (73-393) Procalcitonin < 0.10 ng/mL (0.00-0.10) Urine Collection Type Void Urine Color Alycia Urine Clarity Clear Urine pH 6.0 Urine Specific Tiger >=1.030 Urine Protein 30 mg/dL (NEG-TRACE) Urine Glucose (UA) Negative mg/dL (NEG) Urine Ketones (Stick) 40 mg/dL (NEG) Urine Blood Moderate (NEG) Urine Nitrite Negative (NEG) Urine Bilirubin Small (NEG) Urine Urobilinogen Dipstick 1.0 mg/dL (0.2 mg/dL) Urine Leukocyte Esterase Negative (NEG) Urine RBC 3-5 /HPF (0-2) Urine WBC 0 /HPF (0-4) Urine Squamous Epithelial Cells Occ /LPF Urine Bacteria 0 /HPF (0-FEW) Direct Bilirubin 0.5 mg/dL (0.0-0.2) Laboratory Tests Test 02/27/19 05:37 Creatinine 0.8 mg/dL (0.6-1.0) Estimated GFR (Cockcroft-Gault) 76.2 Problem List Problems Medical Problems: (1) Diverticulitis of colon with perforation Status: Acute (2) Fever Status: Acute (3) Sepsis Status: Acute Assessment/Plan perf tic continue abx can slowly advance diet JOSÉ MIGUEL HERRERA [employer] Feb 27, 2019 10:14
[2019-02-27] MEDS: PANTOPRAZOLE 40 MG TABLET.DR. PO SCH (10:28)
[2019-02-27] MEDS: IV NORMAL SALINE 1000ML BAG 1,000 ML IV SCH ×2 (10:35→21:19)
[2019-02-27 11:00] VITALS: BP 120/70
--- NOTE | 2019-02-27 11:01 | PDOC ---
Subjective: Subjective: Says she just now got breakfast - tolerated clear liquids yesterday, then had a soft tray delivered, now has some full liquids. Appetite isn't great. Loose stools - thinks related to antibiotics. Abd pain better. Objective: Vital Signs: Vital Signs Date Time Temp Pulse Resp B/P (MAP) Pulse Ox O2 Delivery O2 Flow Rate FiO2 02/27/19 08:00 Room Air 02/27/19 07:00 98.1 84 20 119/78 (92) 92 98.1 Labs: Laboratory Tests Test 02/27/19 05:37 Creatinine 0.8 mg/dL Estimated GFR (Cockcroft-Gault) 76.2 BLOOD CULTURE Preliminary NO GROWTH AFTER 1 DAY PE: GEN: NAD LUNGS: CTAB HEART: RRR ABD: suprapubic discomfort NEURO/PSYCH: A & O �3 A/P: Sigmoid diverticulitis w/ perf - on atbx per ID Elevated bilirubin - stable -- Trying full liquids - diet per surgery. Can recheck labs, consider RUQ US for completeness. EGD (h/o heartburn) and colonoscopy in 2-3 months. RUT PARKER Feb 27, 2019 11:00
[2019-02-27 11:21] LABS: HEMATOCRIT 36.2 % (36.0-47.0); HEMOGLOBIN 12.2 g/dL (12.0-15.5); RED BLOOD COUNT 4.2 x10^6/uL (3.50-5.40); RED CELL DISTRIBUTION WIDTH 13.4 % (11.5-14.5); WHITE BLOOD COUNT 7.5 x10^3/uL (4.0-11.0)
[2019-02-27 11:34] LABS: ALBUMIN 2.5 g/dL (3.4-5.0); ALBUMIN/GLOBULIN RATIO 0.7 (1.0-1.7); CALCIUM 8.4 mg/dL (8.5-10.1); CREATININE 0.8 mg/dL (0.6-1.0); GFR 76.2; POTASSIUM 3.6 mmol/L (3.5-5.1); TOTAL BILIRUBIN 1.7 mg/dL (0.2-1.0); TOTAL PROTEIN 6.1 g/dL (6.4-8.2)
[2019-02-27 14:56] VITALS: BP 108/72
--- NOTE | 2019-02-27 14:58 | RAD ---
EXAM: Abdomen sonogram. HISTORY: Elevated bilirubin. TECHNIQUE: Sonographic imaging of the abdomen was performed. COMPARISON: None. FINDINGS: The liver is normal in size. There is hepatic steatosis. There is cholelithiasis and gallbladder sludge. The common bile duct is normal in caliber. The gallbladder wall is normal in thickness. The pancreas is partially obscured due to bowel gas. The right kidney is unremarkable. The aorta is normal in caliber. The inferior vena cava is patent. IMPRESSION: 1. Hepatic steatosis. 2. Cholelithiasis and gallbladder sludge. Electronically signed by: Mendy Westfall MD (02/27/2019 2:55 PM) [facility]
[2019-02-27 19:14] VITALS: BP 121/75
[2019-02-27] MEDS: ENOXAPARIN 40 MG/0.4 ML SYRINGE. SQ SCH (21:00)
[2019-02-27 22:12] VITALS: BP 121/77
[2019-02-28 03:03] VITALS: BP 126/79
[2019-02-28] MEDS: PIPERACILLIN/TAZOBACTAM 3.375 GM in IV NORMAL SALINE 50ML 50 ML IV SCH ×2 (05:26→12:08)
[2019-02-28 06:05] LABS: CREATININE 0.8 mg/dL (0.6-1.0); GFR 76.2
[2019-02-28 07:00] VITALS: BP 128/86
[2019-02-28] MEDS: PANTOPRAZOLE 40 MG TABLET.DR. PO SCH (08:11)
--- NOTE | 2019-02-28 08:42 | PDOC ---
JOSÉ MIGUEL HERRERA [employer] ENGINE[employer] 02/28/19 0842: SURGICAL PROGRESS NOTE Subjective tolerating diet-still low appetite feeling better, very minimal pain Vital Signs Vital Signs Date Time Temp Pulse Resp B/P (MAP) Pulse Ox O2 Delivery O2 Flow Rate FiO2 02/28/19 03:03 98.2 66 16 126/79 (95) 97 Room Air 98.2 I&O Intake and Output 02/28/19 07:00 Intake Total 1570 ml Balance 1570 ml Intake Oral 420 ml IV Total 1150 ml # Voids 2 General: Alert, Oriented X3, Cooperative, No acute distress Abdomen: Soft, No tenderness Labs Laboratory Tests Test 02/27/19 05:37 02/28/19 04:40 White Blood Count 7.5 x10^3/uL (4.0-11.0) Red Blood Count 4.20 x10^6/uL (3.50-5.40) Hemoglobin 12.2 g/dL (12.0-15.5) Hematocrit 36.2 % (36.0-47.0) Mean Corpuscular Volume 86 fL (79-100) Mean Corpuscular Hemoglobin 29 pg (25-35) Mean Corpuscular Hemoglobin Concent 34 g/dL (31-37) Red Cell Distribution Width 13.4 % (11.5-14.5) Platelet Count 310 x10^3/uL (140-400) Sodium Level 142 mmol/L (136-145) Potassium Level 3.6 mmol/L (3.5-5.1) Chloride Level 109 mmol/L (98-107) Carbon Dioxide Level 24 mmol/L (21-32) Anion Gap 9 (6-14) Blood Urea Nitrogen 3 mg/dL (7-20) Creatinine 0.8 mg/dL (0.6-1.0) 0.8 mg/dL (0.6-1.0) Estimated GFR (Cockcroft-Gault) 76.2 76.2 BUN/Creatinine Ratio 4 (6-20) Glucose Level 88 mg/dL (70-99) Calcium Level 8.4 mg/dL (8.5-10.1) Total Bilirubin 1.7 mg/dL (0.2-1.0) Aspartate Amino Transf (AST/SGOT) 14 U/L (15-37) Alanine Aminotransferase (ALT/SGPT) 13 U/L (14-59) Alkaline Phosphatase 61 U/L (46-116) Total Protein 6.1 g/dL (6.4-8.2) Albumin 2.5 g/dL (3.4-5.0) Albumin/Globulin Ratio 0.7 (1.0-1.7) Laboratory Tests Test 02/28/19 04:40 Creatinine 0.8 mg/dL (0.6-1.0) Estimated GFR (Cockcroft-Gault) 76.2 Problem List Problems Medical Problems: (1) Diverticulitis of colon with perforation Status: Acute (2) Fever Status: Acute (3) Sepsis Status: Acute Assessment/Plan improved abx per ID can DC from surgical pov when ok with ID DWIGHT CARMONA MD 02/28/19 0902: SURGICAL PROGRESS NOTE Assessment/Plan Pt seen and examined. Agree with Ms. Herrera's note Pt feels better, john paul diet, no n/V, F/C abd soft, ND, NTTP OK to d/c, f/u in a few weeks, agree with colonoscopy in several weeks. Consider elective resection. JOSÉ MIGUEL HERRERA APRN Feb 28, 2019 08:42 DWIGHT CARMONA MD Feb 28, 2019 09:02
--- NOTE | 2019-02-28 09:02 | PDOC ---
Infectious Disease Note Subjective Subjective Tolerating soft diet so far No abdominal cramps/N/V/D Denies F/C/S ROS ROS per HPI Vital Sign Vital Signs Vital Signs Date Time Temp Pulse Resp B/P (MAP) Pulse Ox O2 Delivery O2 Flow Rate FiO2 02/28/19 07:00 98.1 81 18 128/86 (100) 96 Room Air 98.1 Physical Exam PHYSICAL EXAM GENERAL: Propped up in bed, alert, finished eating HEENT: Pupils equally round and reactive. Oropharynx pink and moist. NECK: Supple. LUNGS: Clear to auscultation. HEART: S1, S2. ABDOMEN: Obese, soft with lower abdominal tenderness. Bowel sounds present. EXTREMITIES: No gross edema or cyanosis. SKIN: Warm to touch. No signs of rash. NEUROLOGIC: Alert and oriented x 3. New PIV left hand - ok Labs Lab Laboratory Tests Test 02/28/19 04:40 Creatinine 0.8 mg/dL (0.6-1.0) Estimated GFR (Cockcroft-Gault) 76.2 MPRESSION: 1. Hepatic steatosis. 2. Cholelithiasis and gallbladder sludge. Micro Microbiology 02/25/19 Blood Culture - Preliminary, Resulted NO GROWTH AFTER 2 DAY Objective Assessment Acute diverticulitis with contained perforation (OP CT scan - [facility]) Fever - better Leukocytosis - better Obesity Cholelithiasis and gallbladder sludge Plan Plan of Care Continue Zosyn BC neg so far no surgical plans D/w nursing ok to d/c home with Cipro/Flagyl but recommend 10 more days given microperf Explained may fail and may need repeat CT F/u ID office 10 days Attending Co-Sign Attending Co-Sign The patient was seen and interviewed as well as examined at the bedside. The art was reviewed. The case was discussed. Agree with the plan of care. PARKER SANCHEZ APRN Feb 28, 2019 09:01 LORENA MCGEE MD Feb 28, 2019 14:40
--- NOTE | 2019-02-28 09:31 | PDOC ---
Subjective: Subjective: Tolerating diet, pain better, hoping to go home today. Found out a few family members had diverticulitis. Objective: Vital Signs: Vital Signs Date Time Temp Pulse Resp B/P (MAP) Pulse Ox O2 Delivery O2 Flow Rate FiO2 02/28/19 07:00 98.1 81 18 128/86 (100) 96 Room Air 98.1 Labs: Laboratory Tests Test 02/28/19 04:40 Creatinine 0.8 mg/dL Estimated GFR (Cockcroft-Gault) 76.2 Imaging: RUQ US 02/27 IMPRESSION: 1. Hepatic steatosis. 2. Cholelithiasis and gallbladder sludge. PE: GEN: NAD LUNGS: CTAB HEART: RRR ABD: S/ND/NT NEURO/PSYCH: A & O �3 A/P: Recurrent diverticulitis Elevated bili (improved) Hepatic steatosis, cholelithiasis -- Possible DC pending ID recs re: PO atbx. Discussed colonoscopy in ~2 months (our office will contact to arrange). Surgery has discussed elective resection. RUT PARKER Feb 28, 2019 09:31
[2019-02-28 11:00] VITALS: BP 122/83
--- NOTE | 2019-02-28 13:30 | PDOC ---
PROGRESS NOTES Chief Complaint Chief Complaint Abdominal pain acute diverticulitis, sigmoid sepsis obese, BMI 37 elevated bili, idiopathic History of Present Illness History of Present Illness 02/28/19. tr to DC Pt seen and examined Pt is feeling a lot better and states she has no pain, nausea, or vomiting. has done well w/ advance diet ID following, on zosyn Vitals Vitals Vital Signs Date Time Temp Pulse Resp B/P (MAP) Pulse Ox O2 Delivery O2 Flow Rate FiO2 02/28/19 11:00 98.0 82 18 122/83 (96) 96 Room Air 98.0 Physical Exam Physical Exam GENERAL: Propped up in bed, alert, finished eating HEENT: Pupils equally round and reactive. Oropharynx pink and moist. NECK: Supple. LUNGS: Clear to auscultation. HEART: S1, S2. ABDOMEN: Obese, soft with lower abdominal tenderness. Bowel sounds present. EXTREMITIES: No gross edema or cyanosis. SKIN: Warm to touch. No signs of rash. NEUROLOGIC: Alert and oriented x 3. New PIV left hand - ok General: Alert, Oriented X3, Cooperative, No acute distress Abdomen: Soft, No tenderness Extremities: No clubbing, No cyanosis Skin: No rashes, No breakdown Labs LABS Laboratory Tests Test 02/28/19 04:40 Creatinine 0.8 mg/dL (0.6-1.0) Estimated GFR (Cockcroft-Gault) 76.2 Assessment and Plan Assessmemt and Plan Problems Medical Problems: (1) Diverticulitis of colon with perforation Status: Acute (2) Fever Status: Acute (3) Sepsis Status: Acute Comment Review of Relevant I have reviewed the following items georges (where applicable) has been applied. Labs Laboratory Tests Test 02/27/19 05:37 02/28/19 04:40 White Blood Count 7.5 x10^3/uL (4.0-11.0) Red Blood Count 4.20 x10^6/uL (3.50-5.40) Hemoglobin 12.2 g/dL (12.0-15.5) Hematocrit 36.2 % (36.0-47.0) Mean Corpuscular Volume 86 fL (79-100) Mean Corpuscular Hemoglobin 29 pg (25-35) Mean Corpuscular Hemoglobin Concent 34 g/dL (31-37) Red Cell Distribution Width 13.4 % (11.5-14.5) Platelet Count 310 x10^3/uL (140-400) Sodium Level 142 mmol/L (136-145) Potassium Level 3.6 mmol/L (3.5-5.1) Chloride Level 109 mmol/L (98-107) Carbon Dioxide Level 24 mmol/L (21-32) Anion Gap 9 (6-14) Blood Urea Nitrogen 3 mg/dL (7-20) Creatinine 0.8 mg/dL (0.6-1.0) 0.8 mg/dL (0.6-1.0) Estimated GFR (Cockcroft-Gault) 76.2 76.2 BUN/Creatinine Ratio 4 (6-20) Glucose Level 88 mg/dL (70-99) Calcium Level 8.4 mg/dL (8.5-10.1) Total Bilirubin 1.7 mg/dL (0.2-1.0) Aspartate Amino Transf (AST/SGOT) 14 U/L (15-37) Alanine Aminotransferase (ALT/SGPT) 13 U/L (14-59) Alkaline Phosphatase 61 U/L (46-116) Total Protein 6.1 g/dL (6.4-8.2) Albumin 2.5 g/dL (3.4-5.0) Albumin/Globulin Ratio 0.7 (1.0-1.7) Laboratory Tests Test 02/28/19 04:40 Creatinine 0.8 mg/dL (0.6-1.0) Estimated GFR (Cockcroft-Gault) 76.2 Microbiology 02/25/19 Blood Culture - Preliminary, Resulted NO GROWTH AFTER 2 DAYS Medications Current Medications Sodium Chloride 1,000 ml @ 1,860 mls/hr Q33M IV Last administered on 02/25/19at 17:17; Start 02/25/19 at 15:32; Stop 02/25/19 at 16:32; Status DC Piperacillin Sod/ Tazobactam Sod 4.5 gm/Sodium Chloride 100 ml @ 200 mls/hr 1X ONCE IV Last administered on 02/25/19at 16:00; Start 02/25/19 at 15:45; Stop 02/25/19 at 16:14; Status DC Vancomycin HCl (Vanco Per Pharmacy) 1 each 1X ONCE MC ; Start 02/25/19 at 15:45; Stop 02/25/19 at 15:46; Status UNV Morphine Sulfate (Morphine Sulfate) 4 mg PRN Q15MIN PRN IV/SQ PAIN GREATER THAN 3/10; Start 02/25/19 at 15:45; Stop 02/26/19 at 15:44; Status DC Vancomycin HCl 2 gm/Sodium Chloride 500 ml @ 250 mls/hr 1X ONCE IV Last administered on 02/25/19at 17:50; Start 02/25/19 at 16:00; Stop 02/25/19 at 17:59; Status DC Metronidazole 100 ml @ 100 mls/hr Q8HRS IV Last administered on 02/26/19at 05:33; Start 02/25/19 at 16:00; Stop 02/26/19 at 09:02; Status DC Ondansetron HCl (Zofran) 4 mg 1X ONCE IVP ; Start 02/25/19 at 15:45; Stop 02/25/19 at 15:46; Status DC Sodium Chloride (Normal Saline Flush) 3 ml QSHIFT PRN IV AFTER MEDS AND BLOOD DRAWS; Start 02/25/19 at 16:45 Sodium Chloride 1,000 ml @ 100 mls/hr Q10H IV Last administered on 02/27/19at 21:19; Start 02/25/19 at 16:40 Ondansetron HCl (Zofran) 4 mg PRN Q4HRS PRN IV NAUSEA/VOMITING Last administered on 02/26/19at 06:56; Start 02/25/19 at 16:45 Acetaminophen (Tylenol Supp) 650 mg PRN Q4HRS PRN AL TEMP OVER 100.4F OR MILD PAIN; Start 02/25/19 at 16:45 Albuterol Sulfate (Ventolin Neb Soln) 2.5 mg PRN Q4HRS PRN NEB SHORTNESS OF BREATH; Start 02/25/19 at 16:45 Hydromorphone HCl (Dilaudid) 1 mg PRN Q2HRS PRN IV SEVERE PAIN 7-10; Start 02/25/19 at 16:45 Enoxaparin Sodium (Lovenox 40mg Syringe) 40 mg QHS SQ Last administered on 02/26/19at 23:15; Start 02/25/19 at 21:00 Piperacillin Sod/ Tazobactam Sod 3.375 gm/Sodium Chloride 50 ml @ 100 mls/hr Q6HRS IV Last administered on 02/28/19at 12:08; Start 02/26/19 at 00:00 Sodium Chloride 1,000 ml @ 1,860 mls/hr Q33M IV ; Start 02/25/19 at 16:45; Stop 02/25/19 at 17:45; Status DC Sodium Chloride 500 ml @ 1,000 mls/hr PRN Q30MIN PRN IV SEE COMMENTS; Start 02/25/19 at 16:45 Vancomycin HCl (Vanco Per Pharmacy) 1 each PRN DAILY PRN MC SEE COMMENTS Last administered on 02/26/19at 08:34; Start 02/25/19 at 16:45; Stop 02/26/19 at 09:02; Status DC Norepinephrine Bitartrate 250 ml @ 0 mls/hr CONT PRN IV SEE I/O RECORD; Start 02/25/19 at 16:45; Stop 02/26/19 at 20:56; Status DC Dobutamine HCl/ Dextrose 250 ml @ 0 mls/hr CONT PRN IV SEE I/O RECORD; Start 02/25/19 at 16:45 Piperacillin Sod/ Tazobactam Sod 3.375 gm/Sodium Chloride 50 ml @ 100 mls/hr 1X ONCE IV ; Start 02/25/19 at 17:00; Stop 02/25/19 at 17:29; Status Cancel Acetaminophen (Tylenol) 1,000 mg 1X ONCE PO Last administered on 02/25/19at 17:21; Start 02/25/19 at 17:00; Stop 02/25/19 at 17:01; Status DC Ondansetron HCl (Zofran) 4 mg PRN Q8HRS PRN IV NAUSEA/VOMITING; Start 02/25/19 at 17:00; Stop 02/26/19 at 16:59; Status DC Sodium Chloride 1,000 ml @ 125 mls/hr 1X ONCE IV Last administered on 02/25/19at 18:59; Start 02/25/19 at 17:00; Stop 02/26/19 at 00:59; Status DC Vancomycin HCl 1.25 gm/Sodium Chloride 250 ml @ 167 mls/hr Q12H IV Last administered on 02/26/19at 06:30; Start 02/26/19 at 06:00; Stop 02/26/19 at 09:02; Status DC Vancomycin HCl (Vancomycin Trough Level) 1 each 1X ONCE MC ; Start 02/27/19 at 05:30; Stop 02/26/19 at 09:09; Status DC Influenza Virus Vaccine Quadrival (Afluria Quad 2019-20 (3yr Up) Syringe) 0.5 ml ONCE ONCE VAX IM ; Start 02/26/19 at 09:00; Stop 02/26/19 at 09:01; Status DC Acetaminophen (Tylenol) 650 mg PRN Q6HRS PRN PO pain Last administered on 02/26/19at 10:19; Start 02/26/19 at 09:15 Pantoprazole Sodium (Protonix) 40 mg DAILYAC PO Last administered on 02/28/19at 08:11; Start 02/26/19 at 16:30 Calcium Carbonate/ Glycine (Tums) 500 mg PRN AFTMEALHC PRN PO INDIGESTION; Start 02/26/19 at 12:30 Active Scripts Active Reported Percocet 5-325 Mg Tablet (Oxycodone/Acetaminophen) 1 Each Tablet 1-2 Tab PO Q4- 6HRS Motrin Ib (Ibuprofen) 200 Mg Tablet 200 Mg PO Q6H Vitals/I & O Vital Sign - Last 24 Hours 02/27/19 02/27/19 02/27/19 02/27/19 14:56 19:14 20:00 22:12 Temp 98.5 97.8 98.4 98.5 97.8 98.4 Pulse 89 93 75 Resp 16 16 16 B/P (MAP) 108/72 (84) 121/75 (90) 121/77 (92) Pulse Ox 100 93 94 O2 Delivery Room Air Room Air Room Air Room Air 02/28/19 02/28/19 02/28/19 02/28/19 03:03 07:00 08:10 11:00 Temp 98.2 98.1 98.0 98.2 98.1 98.0 Pulse 66 81 82 Resp 16 18 18 B/P (MAP) 126/79 (95) 128/86 (100) 122/83 (96) Pulse Ox 97 96 96 O2 Delivery Room Air Room Air Room Air Room Air Intake and Output 02/27/19 02/27/19 02/28/19 15:00 23:00 07:00 Intake Total 100 ml 1420 ml 50 ml Balance 100 ml 1420 ml 50 ml MARTÍN LOVELACE MD Feb 28, 2019 13:29
[2019-02-28] MEDS ORDERED: CIPR500T94 PO (13:34)
[2019-02-28] MEDS ORDERED: LACT1TAB24 PO (13:34)
[2019-02-28] MEDS ORDERED: METR500T PO (13:34)
--- NOTE | 2019-02-28 16:02 | NUR ---
Discharge: Teaching verbal and written. Reviewed medication, follow-up, colonoscopy, EGD, Diverticulitis, diet, antibiotics, ect. Patient verbalized understanding. Written prescription for antibiotics and return to work note given to patient. All belongings with patient.
--- NOTE | 2019-02-28 16:17 | NUR ---
Nursing: Patient assisted off of unit via wheelchair accompanied by and RN
--- NOTE | 2019-02-28 19:07 | PDOC3 ---
Discharge Summary Visit Information Date of Admission: Feb 25, 2019 Date of Discharge: Feb 28, 2019 Final Diagnosis Abdominal pain acute diverticulitis, sigmoid sepsis obese, BMI 37 elevated bili, idiopathic Problems Medical Problems: (1) Diverticulitis of colon with perforation Status: Acute (2) Fever Status: Acute (3) Sepsis Status: Acute Brief Hospital Course Allergies Allergies Coded Allergies Type Severity Reaction Last Updated Verified No Known Drug Allergies 11/24/14 No Vital Signs Vital Signs Date Time Temp Pulse Resp B/P (MAP) Pulse Ox O2 Delivery O2 Flow Rate FiO2 02/28/19 11:00 98.0 82 18 122/83 (96) 96 Room Air 98.0 Lab Results Laboratory Tests Test 02/27/19 05:37 02/28/19 04:40 White Blood Count 7.5 x10^3/uL (4.0-11.0) Red Blood Count 4.20 x10^6/uL (3.50-5.40) Hemoglobin 12.2 g/dL (12.0-15.5) Hematocrit 36.2 % (36.0-47.0) Mean Corpuscular Volume 86 fL (79-100) Mean Corpuscular Hemoglobin 29 pg (25-35) Mean Corpuscular Hemoglobin Concent 34 g/dL (31-37) Red Cell Distribution Width 13.4 % (11.5-14.5) Platelet Count 310 x10^3/uL (140-400) Sodium Level 142 mmol/L (136-145) Potassium Level 3.6 mmol/L (3.5-5.1) Chloride Level 109 mmol/L (98-107) Carbon Dioxide Level 24 mmol/L (21-32) Anion Gap 9 (6-14) Blood Urea Nitrogen 3 mg/dL (7-20) Creatinine 0.8 mg/dL (0.6-1.0) 0.8 mg/dL (0.6-1.0) Estimated GFR (Cockcroft-Gault) 76.2 76.2 BUN/Creatinine Ratio 4 (6-20) Glucose Level 88 mg/dL (70-99) Calcium Level 8.4 mg/dL (8.5-10.1) Total Bilirubin 1.7 mg/dL (0.2-1.0) Aspartate Amino Transf (AST/SGOT) 14 U/L (15-37) Alanine Aminotransferase (ALT/SGPT) 13 U/L (14-59) Alkaline Phosphatase 61 U/L (46-116) Total Protein 6.1 g/dL (6.4-8.2) Albumin 2.5 g/dL (3.4-5.0) Albumin/Globulin Ratio 0.7 (1.0-1.7) Laboratory Tests Test 02/28/19 04:40 Creatinine 0.8 mg/dL (0.6-1.0) Estimated GFR (Cockcroft-Gault) 76.2 Brief Hospital Course Ms. Rodríguez is a 48 old admit for acute abd pain, Outpt CT @ [facility] showed sigmoid diverticulitis w/ perforation. She was advised to come to [facility] ER for admission. Followed by ID and surgery - on IV atbx and clear liquids. Pain improved today, has stooled a couple times. sepsis, iv abx given, she improved over days Discharge Information Condition at Discharge: Improved Follow Up: Weeks Disposition/Orders: D/C to Home Scheduled Ciprofloxacin Hcl (Cipro) 500 Mg Tablet, 1 TAB PO BID for diverticulitis, #8 Prescribed by: MARTÍN LOVELACE on 02/28/19 1334 Ibuprofen (Motrin Ib) 200 Mg Tablet, 200 MG PO Q6H, (Reported) Entered as Reported by: KACEY AG on 12/03/14 1015 Lactobacillus Acidophilus (Probiotic Acidophilus) 1 Each Tablet, 1 EACH PO BID for gut health, #30 Prescribed by: MARTÍN LOVELACE on 02/28/19 1334 Metronidazole (Flagyl) 500 Mg Tablet, 500 MG PO TID for diverticulitis, #15 Prescribed by: MARTÍN LOVELACE on 02/28/19 1334 Oxycodone/Apap 5-325 (Percocet 5-325 Mg Tablet ) 1 Each Tablet, 1-2 TAB PO Q4- 6HRS, #40 (Reported) Entered as Reported by: SATURNINO LOCKWOOD on 12/04/14 0939 Patient Instructions Patient Instructions > 30 min face to face MARTÍN LOVELACE MD Feb 28, 2019 19:07
== END 2019-02-28 16:26 | disposition home or self-care (01) | DRG 872 ==
LOC: ER 15:02 → 2 SOUTH 16:30
PROVIDERS: ADMIT Family Medicine; ATTEND Family Medicine
DX: A41.9 Sepsis, unspecified organism (principal); K57.20 Diverticulitis of large intestine with perforation and abscess without bleeding; E66.01 Morbid (severe) obesity due to excess calories; K80.20 Calculus of gallbladder without cholecystitis without obstruction; K82.8 Other specified diseases of gallbladder; Z68.37 Body mass index [BMI] 37.0-37.9, adult; Z80.3 Family history of malignant neoplasm of breast; Z82.49 Family history of ischemic heart disease and other diseases of the circulatory system; Z90.710 Acquired absence of both cervix and uterus
CPT/HCPCS: 36415; 71046; 76705; 80048; 80053; 80076; 81001; 82565; 83605; 83690; 84145; 85007; 85025; 85027; 85379; 85384; 85610; 85730; 87040; 90471; 90686; 96361; 96365; 96367; J1650; J2405; J2543; J3370; J3490; J7030; J7040; J7050; 99285-25; G0378